=== PATIENT | female | born 1990 | race Caucasian/White ===

== ENCOUNTER 2021-01-29 09:45 | Outpatient (RCR) | payer OTHER, SELFPAY ==
--- NOTE | 2020-11-07 16:06 | PT.OIE ---
Current Diagnoses Unspecified temporomandibular joint disorder, unspecified side (11/07/20) Past Medical History (Last Reviewed 10/12/20 @ 05:49 by DYLAN Quiroga) Anxiety PTSD (post-traumatic stress disorder) Temporomandibular dysfunction syndrome Visit Care Team Role Provider Type DYLAN Quiroga Attending Provider Advanced Government Operations Consultant Primary Care Provider Referring Provider Specialty: Medical Address: [address] [place] [address], [facility] Email: [email or web address] Physical Therapy Initial Evaluation PT-OP-A Visit Information Start: 11/07/20 07:26 Freq: Status: Active Protocol: Document 11/07/20 09:47 MB (Rec: 11/07/20 10:16 MB [id number]) Out-Patient Physical Therapy Visit Information Visit Information Visit Type Initial Evaluation Visit Note Visit Start Time 09:47 Visit Stop Time 10:30 Total Visit Minutes 43 Visit Number 1 Evaluation Information Evaluation Date 11/07/20 Precautions Precautions PTSD, pt states that she is trying to get PT-OP-B Current Condition Start: 11/07/20 07:26 Freq: Status: Active Protocol: Document 11/07/20 09:47 MB (Rec: 11/07/20 10:16 MB [id number]) Current Condition History of Current Condition Onset Date 2011 after work on top left molar and bite was off Current Complaints Left TMJ ache, weakness and sharp pain biting down on hard food History of Current Condition 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 Pt's spouse is active and has had long deployment. Pt has a history of PTSD with sleep paralysis occ at night, bruxism, pancreatic issues and pt saw green hide inspector to assist with her with diet. Pt reports ringing in both ears 1-2x/every two weeks. She denies headache, dizziness and neck pain. She does report a history of low BP that made her feel off. She is concerned about flattening of the left TMJ per previous x- ray. She reports she had tubes in her ears when she was little d /t drainage. She is trying to get . She has seasonal allergies. Pt had wisdom teeth out in October 2019. She was given a bite guard and then she got a crown and then she did not use it anymore. Pt reports that it is easy and comfortable to close with her back teeth together, pt feels her back teeth touching when clicking them together. It feels like pressure is on the middle teeth and not on the back molars when she taps her teeth together. In the morning , she feels feels stiff and arthritic type pain in her left TMJ area. If she bites in an apple or nut, she feels sharp pain in the left TMJ area. She cannot bite down hard with her teeth. It feels like her jaw might break and she has the sharp pain and so she avoids it. Pt feels her body tightening up at night, including her arms. She liked craniosacral therapy in the past. She felt relief with it. She also felt relief with massage therapy. It is like a valve opening up and more mobility in her left TMJ. Pt sleeps on her back with one pillow under her head. She occ wakes up on her stomach with her head turned to the left. She has a memory foam mattress. She likes it. She gets cold at night. She got a weighted blanket. She gets up 1-2x/night to urinate. She denies apnea and walking in her sleep. She has 2 dogs and a cat in the room. The cat occ gets on the bed. The cat occ inhibits movement. Treatment Goals Patient/Caregiver Goals To bite down hard without pain , waking up with less jaw pain and tension, learning techniques that will help her in the future. PT-OP-C Subjective Start: 11/07/20 07:26 Freq: Status: Active Protocol: Document 11/07/20 09:47 MB (Rec: 11/07/20 15:42 MB [id number]) OP-PT Subjective Patient Comments Patient Comments See history of current condition PT-OP-J Posture/Palpation/Skin Start: 11/07/20 07:26 Freq: Status: Active Protocol: Document 11/07/20 09:47 MB (Rec: 11/07/20 16:05 MB [id number]) Posture Evaluation Comments Posture Comments Standing posture: Pt states with head in mild SB posture that she corrects and it changes. She states this is a long-standing posture of hers. She presents with forward head, rounded shoulders, decreased cervical lordosis, Dowager's hump, decreased thoracic kyphosis, anterior tilt pelvis, mid clavicular protrusion B, right scapula lower than the left, right iliac crest higher than the left. Skin Assessment Other Assessments Skin Assessment Comments Increased tension right greater than left SCM, left temporalis PT-OP-K Range of Motion Start: 11/07/20 07:26 Freq: Status: Active Protocol: Document 11/07/20 09:47 MB (Rec: 11/07/20 16:05 MB [id number]) Cervical Spine Range of Motion Cervical Spine Active Testing Position Standing Flexion 35 Extension 40 Rotation Left 50 Rotation Right 50 Lateral Flexion Left 35 Lateral Flexion Right 25 TMJ Range of Motion Comments Comments Mild deviation to the left with mandiublar depression. 32 mm depression today PT-OP-Q Treatments Start: 11/07/20 07:26 Freq: Status: Active Protocol: Document 11/07/20 09:47 MB (Rec: 11/07/20 15:46 MB [id number]) Self-Care/Home Management Treatment Education Other Education Benefits of Counterstrain, relaxation exercises such as progressive muscle relaxation exercises, breathing exercises and reading, The Body Keeps the Score for education about PTSD, the limbic system, parasympathetic and sympathetic nervous systems, good sleep hygiene PT-OP-T Assessment and Plan Start: 11/07/20 07:26 Freq: Status: Active Protocol: Document 11/07/20 09:47 MB (Rec: 11/07/20 15:56 MB [id number]) Physical Therapy Assessment Rehab Potential Rehabilitation Potential Good Evaluation Complexity Number of Personal Factors/Comorbidities 1-2 Number of Body Systems Impaired 1-2 Clinical Presentation at Evaluation Evolving Impairments Impairments Pain,Posture,ROM,Soft Tissue Mobility Goals 3 Business Process Engineer Goal (LTG) Pt will perform progressive HEP with I including postural, relaxation, flexibility, and self-myofascial exercises to improve pain, posture and function by 01/07/21. LTG Duration 8 weeks 2 Snf Goal (LTG) Pt will report an overall 75% improvement in left TMJ symptoms with sleeping and waking to improve quality of sleep and life by 01/07/21. LTG Duration 8 weeks 1 Business Process Engineer Goal (LTG) Pt will report a 75% improvement in pain and strength ability of biting into a hard food such as an apple by 01/07/21. LTG Duration 8 weeks Assessment Summary Assessment Pt is a pleasant 29 y/o female presenting with a long history of L TMJ pain after dental procedure in 2011 and feeling like her bite was misaligned since that time. Her manibular depression deviates to the left and she presents with some myofascial and postural changes including decreased active cervical ROM . She reports a history of PTSD and states that she does tense at night in her UEs and in her jaw at times. She has had pain sleeping and upon waking up. She will beneift from PT to address underlying contributions to jaw and upper body tension including sleeping strategies, progressive muscle relaxation and breathing techniques, postural training and education and progressive flexibility and strengthening. Physical Therapy Plan Frequency and Duration Frequency of Treatment 2x/Week Duration of Treatment 8 weeks Plan of Care Start Date 11/07/20 Plan of Care End Date 01/07/21 Therapeutic Interventions Therapeutic Interventions Balance Training,Canalithic Repositioning,Home Exercise Program,Joint Mobilizations, Manual Therapy,Neuromuscular Re-education,Patient/Caregiver Education,Self-Care/Home Management,Soft Tissue Mobilization,Taping, Therapeutic Activities, Therapeutic Exercises Modalities Cold Pack/Ice Massage,Hot Packs Next Visit Focus/Plan Next Note Type Treatment Note Next Visit Plan Initiate progressive muscle relaxation and Buteyko breathing soon, Counterstrain, racquet ball massage and self -SCM MWM, temporalis and masseter MWM
--- NOTE | 2020-11-07 16:06 | PT.OPPOC ---
Physical, Occupational & Speech Therapy At [facility] Current Diagnoses Unspecified temporomandibular joint disorder, unspecified side (11/07/20) Visit Care Team Role Provider Type DYLAN Quiroga Attending Provider Advanced Clinical Team Manager Primary Care Provider Referring Provider Specialty: Medical Address: [address] [place] [address], [facility] Email: [email or web address] Plan Of Care PT-OP-T Assessment and Plan Start: 11/07/20 07:26 Freq: Status: Active Protocol: Document 11/07/20 09:47 MB (Rec: 11/07/20 15:56 MB [id number]) Physical Therapy Assessment Rehab Potential Rehabilitation Potential Good Evaluation Complexity Number of Personal Factors/Comorbidities 1-2 Number of Body Systems Impaired 1-2 Clinical Presentation at Evaluation Evolving Impairments Impairments Pain,Posture,ROM,Soft Tissue Mobility Goals 3 Yard Loader Operator Goal (LTG) Pt will perform progressive HEP with I including postural, relaxation, flexibility, and self-myofascial exercises to improve pain, posture and function by 01/07/21. LTG Duration 8 weeks 2 Senior Care Goal (LTG) Pt will report an overall 75% improvement in left TMJ symptoms with sleeping and waking to improve quality of sleep and life by 01/07/21. LTG Duration 8 weeks 1 Yard Loader Operator Goal (LTG) Pt will report a 75% improvement in pain and strength ability of biting into a hard food such as an apple by 01/07/21. LTG Duration 8 weeks Assessment Summary Assessment Pt is a pleasant 29 y/o female presenting with a long history of L TMJ pain after dental procedure in 2011 and feeling like her bite was misaligned since that time. Her manibular depression deviates to the left and she presents with some myofascial and postural changes including decreased active cervical ROM . She reports a history of PTSD and states that she does tense at night in her UEs and in her jaw at times. She has had pain sleeping and upon waking up. She will beneift from PT to address underlying contributions to jaw and upper body tension including sleeping strategies, progressive muscle relaxation and breathing techniques, postural training and education and progressive flexibility and strengthening. Physical Therapy Plan Frequency and Duration Frequency of Treatment 2x/Week Duration of Treatment 8 weeks Plan of Care Start Date 11/07/20 Plan of Care End Date 01/07/21 Therapeutic Interventions Therapeutic Interventions Balance Training,Canalithic Repositioning,Home Exercise Program,Joint Mobilizations, Manual Therapy,Neuromuscular Re-education,Patient/Caregiver Education,Self-Care/Home Management,Soft Tissue Mobilization,Taping, Therapeutic Activities, Therapeutic Exercises Modalities Cold Pack/Ice Massage,Hot Packs Next Visit Focus/Plan Next Note Type Treatment Note Next Visit Plan Initiate progressive muscle relaxation and Buteyko breathing soon, Counterstrain, racquet ball massage and self -SCM MWM, temporalis and masseter MWM Plan of Care Dates Plan of Care Start Date 11/07/20 Plan of Care End Date 01/07/21 Electronically Signed by: Misti Pacheco, PT 11/07/20 [id number] Please Sign and Return: I have reviewed this Plan of Care and certify that the skilled therapy services above are required to meet the patient?s needs. Physician Signature Date Printed Name and Credentials Clinical Instructor Signature Printed Name and Credentials
--- NOTE | 2020-11-09 14:35 | PT.OTN ---
Current Diagnoses Unspecified temporomandibular joint disorder, unspecified side (11/09/20) Physical Therapy Treatment Note PT-OP-A Visit Information Start: 11/07/20 07:26 Freq: Status: Active Protocol: Document 11/09/20 13:50 MB (Rec: 11/09/20 14:35 MB [id number]) Out-Patient Physical Therapy Visit Information Visit Information Visit Type Treatment Note Visit Note Visit Start Time 13:50 Visit Stop Time 14:30 Total Visit Minutes 40 Visit Number 2 Precautions Precautions PTSD, pt states that she is trying to get PT-OP-B Current Condition Start: 11/07/20 07:26 Freq: Status: Active Protocol: Document 11/07/20 09:47 MB (Rec: 11/07/20 10:16 MB [id number]) Current Condition History of Current Condition Onset Date 2011 after work on top left molar and bite was off Current Complaints Left TMJ ache, weakness and sharp pain biting down on hard food History of Current Condition 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 Pt's spouse is active and has had long deployment. Pt has a history of PTSD with sleep paralysis occ at night, bruxism, pancreatic issues and pt saw retail general manager to assist with her with diet. Pt reports ringing in both ears 1-2x/every two weeks. She denies headache, dizziness and neck pain. She does report a history of low BP that made her feel off. She is concerned about flattening of the left TMJ per previous x- ray. She reports she had tubes in her ears when she was little d /t drainage. She is trying to get . She has seasonal allergies. Pt had wisdom teeth out in October 2019. She was given a bite guard and then she got a crown and then she did not use it anymore. Pt reports that it is easy and comfortable to close with her back teeth together, pt feels her back teeth touching when clicking them together. It feels like pressure is on the middle teeth and not on the back molars when she taps her teeth together. In the morning , she feels feels stiff and arthritic type pain in her left TMJ area. If she bites in an apple or nut, she feels sharp pain in the left TMJ area. She cannot bite down hard with her teeth. It feels like her jaw might break and she has the sharp pain and so she avoids it. Pt feels her body tightening up at night, including her arms. She liked craniosacral therapy in the past. She felt relief with it. She also felt relief with massage therapy. It is like a valve opening up and more mobility in her left TMJ. Pt sleeps on her back with one pillow under her head. She occ wakes up on her stomach with her head turned to the left. She has a memory foam mattress. She likes it. She gets cold at night. She got a weighted blanket. She gets up 1-2x/night to urinate. She denies apnea and walking in her sleep. She has 2 dogs and a cat in the room. The cat occ gets on the bed. The cat occ inhibits movement. Treatment Goals Patient/Caregiver Goals To bite down hard without pain , waking up with less jaw pain and tension, learning techniques that will help her in the future. PT-OP-C Subjective Start: 11/07/20 07:26 Freq: Status: Active Protocol: Document 11/09/20 13:50 MB (Rec: 11/09/20 14:35 MB [id number]) OP-PT Subjective Patient Comments Patient Comments Pt states that she is interested in the author of The Body Keeps the Score. PT-OP-J Posture/Palpation/Skin Start: 11/07/20 07:26 Freq: Status: Active Protocol: Document 11/07/20 09:47 MB (Rec: 11/07/20 16:05 MB [id number]) Posture Evaluation Comments Posture Comments Standing posture: Pt states with head in mild SB posture that she corrects and it changes. She states this is a long-standing posture of hers. She presents with forward head, rounded shoulders, decreased cervical lordosis, Dowager's hump, decreased thoracic kyphosis, anterior tilt pelvis, mid clavicular protrusion B, right scapula lower than the left, right iliac crest higher than the left. Skin Assessment Other Assessments Skin Assessment Comments Increased tension right greater than left SCM, left temporalis PT-OP-K Range of Motion Start: 11/07/20 07:26 Freq: Status: Active Protocol: Document 11/07/20 09:47 MB (Rec: 11/07/20 16:05 MB [id number]) Cervical Spine Range of Motion Cervical Spine Active Testing Position Standing Flexion 35 Extension 40 Rotation Left 50 Rotation Right 50 Lateral Flexion Left 35 Lateral Flexion Right 25 TMJ Range of Motion Comments Comments Mild deviation to the left with mandiublar depression. 32 mm depression today PT-OP-Q Treatments Start: 11/07/20 07:26 Freq: Status: Active Protocol: Document 11/09/20 13:50 MB (Rec: 11/09/20 14:35 MB [id number]) Therapeutic Exercises Supine Exercises Tongue to roof of mouth Comments Cued to perform in hook lying and relax and nasal breathe Buteyko breathing Supine Exercise Name Ed pt in theory behind breathing, exercise 1 and 2 Comments See assessment for comments today Self-Care/Home Management Treatment Education Other Education Proper sleeping position with towel roll support at neck and pillow support under head, white noise to help with sound leveling and trying to keep cat off the bed to decrease startle, benefits of breathing , progressive relaxation exercises, good positioning for exercises, breathing, autonomic nervous system, sympathetic and parasympathetic nervous. PT-OP-T Assessment and Plan Start: 11/07/20 07:26 Freq: Status: Active Protocol: Document 11/09/20 13:50 MB (Rec: 11/09/20 14:35 MB [id number]) Physical Therapy Assessment Rehab Potential Rehabilitation Potential Good Evaluation Complexity Number of Personal Factors/Comorbidities 1-2 Number of Body Systems Impaired 1-2 Clinical Presentation at Evaluation Evolving Impairments Impairments Pain,Posture,ROM,Soft Tissue Mobility Goals 3 Fpc Goal (LTG) Pt will perform progressive HEP with I including postural, relaxation, flexibility, and self-myofascial exercises to improve pain, posture and function by 01/07/21. LTG Duration 8 weeks 2 Fpc Goal (LTG) Pt will report an overall 75% improvement in left TMJ symptoms with sleeping and waking to improve quality of sleep and life by 01/07/21. LTG Duration 8 weeks 1 Personalized Living Manager Nurse Goal (LTG) Pt will report a 75% improvement in pain and strength ability of biting into a hard food such as an apple by 01/07/21. LTG Duration 8 weeks Assessment Summary Assessment Initiated Buteyko technique today and HR and O2 sats in left index finger: at rest: 61 BPM and O2 sats 98%. After 1st rep: 26 sec, 48 BPM, 99%; 2nd rep: 28 sec. Education con 't and so more practice and add diaphragm breathing in future treatment dates. Physical Therapy Plan Frequency and Duration Frequency of Treatment 2x/Week Duration of Treatment 8 weeks Plan of Care Start Date 11/07/20 Plan of Care End Date 01/07/21 Therapeutic Interventions Therapeutic Interventions Balance Training,Canalithic Repositioning,Home Exercise Program,Joint Mobilizations, Manual Therapy,Neuromuscular Re-education,Patient/Caregiver Education,Self-Care/Home Management,Soft Tissue Mobilization,Taping, Therapeutic Activities, Therapeutic Exercises Modalities Cold Pack/Ice Massage,Hot Packs Next Visit Focus/Plan Next Note Type Treatment Note Next Visit Plan Progress diaphragm breathing with [place]. Initiate progressive muscle relaxation soon, Counterstrain, racquet ball massage and self-SCM MWM, temporalis and masseter MWM
--- NOTE | 2020-11-12 11:12 | PT.OTN ---
Current Diagnoses Unspecified temporomandibular joint disorder, unspecified side (11/12/20) Physical Therapy Treatment Note PT-OP-A Visit Information Start: 11/07/20 07:26 Freq: Status: Active Protocol: Document 11/12/20 10:30 MB (Rec: 11/12/20 11:12 MB [id number]) Out-Patient Physical Therapy Visit Information Visit Information Visit Type Treatment Note Visit Note Visit Start Time 10:30 Visit Stop Time 11:12 Total Visit Minutes 42 Visit Number 3 Precautions Precautions PTSD, pt states that she is trying to get PT-OP-B Current Condition Start: 11/07/20 07:26 Freq: Status: Active Protocol: Document 11/07/20 09:47 MB (Rec: 11/07/20 10:16 MB [id number]) Current Condition History of Current Condition Onset Date 2011 after work on top left molar and bite was off Current Complaints Left TMJ ache, weakness and sharp pain biting down on hard food History of Current Condition 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 Pt's spouse is active and has had long deployment. Pt has a history of PTSD with sleep paralysis occ at night, bruxism, pancreatic issues and pt saw appraiser boats and marine to assist with her with diet. Pt reports ringing in both ears 1-2x/every two weeks. She denies headache, dizziness and neck pain. She does report a history of low BP that made her feel off. She is concerned about flattening of the left TMJ per previous x- ray. She reports she had tubes in her ears when she was little d /t drainage. She is trying to get . She has seasonal allergies. Pt had wisdom teeth out in October 2019. She was given a bite guard and then she got a crown and then she did not use it anymore. Pt reports that it is easy and comfortable to close with her back teeth together, pt feels her back teeth touching when clicking them together. It feels like pressure is on the middle teeth and not on the back molars when she taps her teeth together. In the morning , she feels feels stiff and arthritic type pain in her left TMJ area. If she bites in an apple or nut, she feels sharp pain in the left TMJ area. She cannot bite down hard with her teeth. It feels like her jaw might break and she has the sharp pain and so she avoids it. Pt feels her body tightening up at night, including her arms. She liked craniosacral therapy in the past. She felt relief with it. She also felt relief with massage therapy. It is like a valve opening up and more mobility in her left TMJ. Pt sleeps on her back with one pillow under her head. She occ wakes up on her stomach with her head turned to the left. She has a memory foam mattress. She likes it. She gets cold at night. She got a weighted blanket. She gets up 1-2x/night to urinate. She denies apnea and walking in her sleep. She has 2 dogs and a cat in the room. The cat occ gets on the bed. The cat occ inhibits movement. Treatment Goals Patient/Caregiver Goals To bite down hard without pain , waking up with less jaw pain and tension, learning techniques that will help her in the future. PT-OP-C Subjective Start: 11/07/20 07:26 Freq: Status: Active Protocol: Document 11/12/20 10:30 MB (Rec: 11/12/20 11:12 MB [id number]) OP-PT Subjective Patient Comments Patient Comments I had a breakthrough. Pt states that she was doing th exercise in her chair and fell asleep and when her 's friend came into the house in the evening, she did not wake up or have a hypervigilant response. Her TMJ pain this morning was 3-4/10 rather than 6-7/10. PT-OP-J Posture/Palpation/Skin Start: 11/07/20 07:26 Freq: Status: Active Protocol: Document 11/07/20 09:47 MB (Rec: 11/07/20 16:05 MB [id number]) Posture Evaluation Comments Posture Comments Standing posture: Pt states with head in mild SB posture that she corrects and it changes. She states this is a long-standing posture of hers. She presents with forward head, rounded shoulders, decreased cervical lordosis, Dowager's hump, decreased thoracic kyphosis, anterior tilt pelvis, mid clavicular protrusion B, right scapula lower than the left, right iliac crest higher than the left. Skin Assessment Other Assessments Skin Assessment Comments Increased tension right greater than left SCM, left temporalis PT-OP-K Range of Motion Start: 11/07/20 07:26 Freq: Status: Active Protocol: Document 11/07/20 09:47 MB (Rec: 11/07/20 16:05 MB [id number]) Cervical Spine Range of Motion Cervical Spine Active Testing Position Standing Flexion 35 Extension 40 Rotation Left 50 Rotation Right 50 Lateral Flexion Left 35 Lateral Flexion Right 25 TMJ Range of Motion Comments Comments Mild deviation to the left with mandiublar depression. 32 mm depression today PT-OP-Q Treatments Start: 11/07/20 07:26 Freq: Status: Active Protocol: Document 11/12/20 10:30 MB (Rec: 11/12/20 11:12 MB [id number]) Therapeutic Exercises Supine Exercises Progressive Muscle Relaxation Exercises Side bilateral Reps/Minutes 1 rep, 10 sec hold Comments Pt performs all exercises except except press teeth/open mouth/eye squeeze Buteyko breathing Supine Exercise Name Diaphragm breathing with Buteyko breathing Comments 3 reps with cues: 1st rep: 12 sec; 2nd rep: 14 sec; 3rd rep: 17 sec Manual Therapy Treatment Other Other Manual Treatments MWM left rectus abdominus with coordinated diaphragm breathing; MWM B upper traps with PT providing TrP pressure and pt performing active cervical rotation, also worked on middle scalene in similar position PT-OP-T Assessment and Plan Start: 11/07/20 07:26 Freq: Status: Active Protocol: Document 11/12/20 10:30 MB (Rec: 11/12/20 11:12 MB [id number]) Physical Therapy Assessment Rehab Potential Rehabilitation Potential Good Evaluation Complexity Number of Personal Factors/Comorbidities 1-2 Number of Body Systems Impaired 1-2 Clinical Presentation at Evaluation Evolving Impairments Impairments Pain,Posture,ROM,Soft Tissue Mobility Goals 3 Detention Goal (LTG) Pt will perform progressive HEP with I including postural, relaxation, flexibility, and self-myofascial exercises to improve pain, posture and function by 01/07/21. LTG Duration 8 weeks 2 Prop And Effects Designer Goal (LTG) Pt will report an overall 75% improvement in left TMJ symptoms with sleeping and waking to improve quality of sleep and life by 01/07/21. LTG Duration 8 weeks 1 Prop And Effects Designer Goal (LTG) Pt will report a 75% improvement in pain and strength ability of biting into a hard food such as an apple by 01/07/21. LTG Duration 8 weeks Assessment Summary Assessment Progressed PMRE today and diaphragm breathing with [place]. Pt states that she often notices she has tension in her neck and upper shoulders and will con't to work on this with PT course of manual work and self-care and exercises. Physical Therapy Plan Frequency and Duration Frequency of Treatment 2x/Week Duration of Treatment 8 weeks Plan of Care Start Date 11/07/20 Plan of Care End Date 01/07/21 Therapeutic Interventions Therapeutic Interventions Balance Training,Canalithic Repositioning,Home Exercise Program,Joint Mobilizations, Manual Therapy,Neuromuscular Re-education,Patient/Caregiver Education,Self-Care/Home Management,Soft Tissue Mobilization,Taping, Therapeutic Activities, Therapeutic Exercises Modalities Cold Pack/Ice Massage,Hot Packs Next Visit Focus/Plan Next Note Type Treatment Note Next Visit Plan Counterstrain, racquet ball massage and self-SCM MWM, temporalis and masseter MWM
--- NOTE | 2020-11-14 13:01 | PT.OTN ---
Current Diagnoses Unspecified temporomandibular joint disorder, unspecified side (11/14/20) Physical Therapy Treatment Note PT-OP-A Visit Information Start: 11/07/20 07:26 Freq: Status: Active Protocol: Document 11/14/20 12:15 MB (Rec: 11/14/20 12:57 MB [id number]) Out-Patient Physical Therapy Visit Information Visit Information Visit Type Treatment Note Visit Note Visit Start Time 12:15 Visit Stop Time 12:47 Total Visit Minutes 42 Visit Number 4 Precautions Precautions PTSD, pt states that she is trying to get PT-OP-B Current Condition Start: 11/07/20 07:26 Freq: Status: Active Protocol: Document 11/07/20 09:47 MB (Rec: 11/07/20 10:16 MB [id number]) Current Condition History of Current Condition Onset Date 2011 after work on top left molar and bite was off Current Complaints Left TMJ ache, weakness and sharp pain biting down on hard food History of Current Condition 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 Pt's spouse is active and has had long deployment. Pt has a history of PTSD with sleep paralysis occ at night, bruxism, pancreatic issues and pt saw technical sales representatives to assist with her with diet. Pt reports ringing in both ears 1-2x/every two weeks. She denies headache, dizziness and neck pain. She does report a history of low BP that made her feel off. She is concerned about flattening of the left TMJ per previous x- ray. She reports she had tubes in her ears when she was little d /t drainage. She is trying to get . She has seasonal allergies. Pt had wisdom teeth out in October 2019. She was given a bite guard and then she got a crown and then she did not use it anymore. Pt reports that it is easy and comfortable to close with her back teeth together, pt feels her back teeth touching when clicking them together. It feels like pressure is on the middle teeth and not on the back molars when she taps her teeth together. In the morning , she feels feels stiff and arthritic type pain in her left TMJ area. If she bites in an apple or nut, she feels sharp pain in the left TMJ area. She cannot bite down hard with her teeth. It feels like her jaw might break and she has the sharp pain and so she avoids it. Pt feels her body tightening up at night, including her arms. She liked craniosacral therapy in the past. She felt relief with it. She also felt relief with massage therapy. It is like a valve opening up and more mobility in her left TMJ. Pt sleeps on her back with one pillow under her head. She occ wakes up on her stomach with her head turned to the left. She has a memory foam mattress. She likes it. She gets cold at night. She got a weighted blanket. She gets up 1-2x/night to urinate. She denies apnea and walking in her sleep. She has 2 dogs and a cat in the room. The cat occ gets on the bed. The cat occ inhibits movement. Treatment Goals Patient/Caregiver Goals To bite down hard without pain , waking up with less jaw pain and tension, learning techniques that will help her in the future. PT-OP-C Subjective Start: 11/07/20 07:26 Freq: Status: Active Protocol: Document 11/14/20 12:15 MB (Rec: 11/14/20 12:57 MB [id number]) OP-PT Subjective Patient Comments Patient Comments I don't feel comfortable doing doing the muscle contraction exercises in my upper body. I liked the muscle work on my neck. It relieved discomfort. Ed pt to only perform PMRE if helpful and only LEs. PT-OP-J Posture/Palpation/Skin Start: 11/07/20 07:26 Freq: Status: Active Protocol: Document 11/07/20 09:47 MB (Rec: 11/07/20 16:05 MB [id number]) Posture Evaluation Comments Posture Comments Standing posture: Pt states with head in mild SB posture that she corrects and it changes. She states this is a long-standing posture of hers. She presents with forward head, rounded shoulders, decreased cervical lordosis, Dowager's hump, decreased thoracic kyphosis, anterior tilt pelvis, mid clavicular protrusion B, right scapula lower than the left, right iliac crest higher than the left. Skin Assessment Other Assessments Skin Assessment Comments Increased tension right greater than left SCM, left temporalis PT-OP-K Range of Motion Start: 11/07/20 07:26 Freq: Status: Active Protocol: Document 11/07/20 09:47 MB (Rec: 11/07/20 16:05 MB [id number]) Cervical Spine Range of Motion Cervical Spine Active Testing Position Standing Flexion 35 Extension 40 Rotation Left 50 Rotation Right 50 Lateral Flexion Left 35 Lateral Flexion Right 25 TMJ Range of Motion Comments Comments Mild deviation to the left with mandiublar depression. 32 mm depression today PT-OP-Q Treatments Start: 11/07/20 07:26 Freq: Status: Active Protocol: Document 11/14/20 12:15 MB (Rec: 11/14/20 12:57 MB [id number]) Therapeutic Exercises Supine Exercises Buteyko breathing Supine Exercise Name Blocked nostril and sinus decongestion exercises Equipment Used Chair with pillow behind back, sitting today Comments Left blocked nostril and then B for sinus decongestion, several reps Sitting Exercises MWM upper traps with raquet ball Side bilateral Comments TrP pressure on upper traps leaning into racquet ball at corner, rotate Back farm truck driver MWM upper traps Side bilateral Comments TrP pressure and pt performing active cervical rotation opposite direction Standing Exercises MWM infraspinatus Side bilateral Comments TrP pressure with racquet ball and pt performing active ER/ IR PT-OP-T Assessment and Plan Start: 11/07/20 07:26 Freq: Status: Active Protocol: Document 11/14/20 12:15 MB (Rec: 11/14/20 12:57 MB [id number]) Physical Therapy Assessment Rehab Potential Rehabilitation Potential Good Evaluation Complexity Number of Personal Factors/Comorbidities 1-2 Number of Body Systems Impaired 1-2 Clinical Presentation at Evaluation Evolving Impairments Impairments Pain,Posture,ROM,Soft Tissue Mobility Goals 3 Detention Goal (LTG) Pt will perform progressive HEP with I including postural, relaxation, flexibility, and self-myofascial exercises to improve pain, posture and function by 01/07/21. LTG Duration 8 weeks 2 Detention Goal (LTG) Pt will report an overall 75% improvement in left TMJ symptoms with sleeping and waking to improve quality of sleep and life by 01/07/21. LTG Duration 8 weeks 1 Needle Punch Machine Operator Helper Goal (LTG) Pt will report a 75% improvement in pain and strength ability of biting into a hard food such as an apple by 01/07/21. LTG Duration 8 weeks Assessment Summary Assessment Progressed Buteyko breathing today and self-massage and pt tolerates well. Extensive time reviewing muscle trigger point referral and massage today. Con't manual, postural and flexibility work. Physical Therapy Plan Frequency and Duration Frequency of Treatment 2x/Week Duration of Treatment 8 weeks Plan of Care Start Date 11/07/20 Plan of Care End Date 01/07/21 Therapeutic Interventions Therapeutic Interventions Balance Training,Canalithic Repositioning,Home Exercise Program,Joint Mobilizations, Manual Therapy,Neuromuscular Re-education,Patient/Caregiver Education,Self-Care/Home Management,Soft Tissue Mobilization,Taping, Therapeutic Activities, Therapeutic Exercises Modalities Cold Pack/Ice Massage,Hot Packs Next Visit Focus/Plan Next Note Type Treatment Note Next Visit Plan Counterstrain and other manual work including masseter manual PT, pect stretch over pool noodle
--- NOTE | 2020-11-20 09:43 | PT.OTN ---
Current Diagnoses Unspecified temporomandibular joint disorder, unspecified side (11/20/20) Physical Therapy Treatment Note PT-OP-A Visit Information Start: 11/07/20 07:26 Freq: Status: Active Protocol: Document 11/20/20 09:01 MB (Rec: 11/20/20 09:32 MB [id number]) Out-Patient Physical Therapy Visit Information Visit Information Visit Type Treatment Note Visit Note Visit Start Time 09:01 Visit Stop Time 09:42 Total Visit Minutes 41 Visit Number 5 Precautions Precautions PTSD, pt states that she is trying to get PT-OP-B Current Condition Start: 11/07/20 07:26 Freq: Status: Active Protocol: Document 11/07/20 09:47 MB (Rec: 11/07/20 10:16 MB [id number]) Current Condition History of Current Condition Onset Date 2011 after work on top left molar and bite was off Current Complaints Left TMJ ache, weakness and sharp pain biting down on hard food History of Current Condition 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 Pt's spouse is active and has had long deployment. Pt has a history of PTSD with sleep paralysis occ at night, bruxism, pancreatic issues and pt saw concession attendant to assist with her with diet. Pt reports ringing in both ears 1-2x/every two weeks. She denies headache, dizziness and neck pain. She does report a history of low BP that made her feel off. She is concerned about flattening of the left TMJ per previous x- ray. She reports she had tubes in her ears when she was little d /t drainage. She is trying to get . She has seasonal allergies. Pt had wisdom teeth out in October 2019. She was given a bite guard and then she got a crown and then she did not use it anymore. Pt reports that it is easy and comfortable to close with her back teeth together, pt feels her back teeth touching when clicking them together. It feels like pressure is on the middle teeth and not on the back molars when she taps her teeth together. In the morning , she feels feels stiff and arthritic type pain in her left TMJ area. If she bites in an apple or nut, she feels sharp pain in the left TMJ area. She cannot bite down hard with her teeth. It feels like her jaw might break and she has the sharp pain and so she avoids it. Pt feels her body tightening up at night, including her arms. She liked craniosacral therapy in the past. She felt relief with it. She also felt relief with massage therapy. It is like a valve opening up and more mobility in her left TMJ. Pt sleeps on her back with one pillow under her head. She occ wakes up on her stomach with her head turned to the left. She has a memory foam mattress. She likes it. She gets cold at night. She got a weighted blanket. She gets up 1-2x/night to urinate. She denies apnea and walking in her sleep. She has 2 dogs and a cat in the room. The cat occ gets on the bed. The cat occ inhibits movement. Treatment Goals Patient/Caregiver Goals To bite down hard without pain , waking up with less jaw pain and tension, learning techniques that will help her in the future. PT-OP-C Subjective Start: 11/07/20 07:26 Freq: Status: Active Protocol: Document 11/20/20 09:01 MB (Rec: 11/20/20 09:32 MB [id number]) OP-PT Subjective Patient Comments Patient Comments Pt states that she is a little sore from the weekend. She worked hard in the garden and is tighter all over. She did the breathing. She didn't sleep well the night before last. PT-OP-J Posture/Palpation/Skin Start: 11/07/20 07:26 Freq: Status: Active Protocol: Document 11/07/20 09:47 MB (Rec: 11/07/20 16:05 MB [id number]) Posture Evaluation Comments Posture Comments Standing posture: Pt states with head in mild SB posture that she corrects and it changes. She states this is a long-standing posture of hers. She presents with forward head, rounded shoulders, decreased cervical lordosis, Dowager's hump, decreased thoracic kyphosis, anterior tilt pelvis, mid clavicular protrusion B, right scapula lower than the left, right iliac crest higher than the left. Skin Assessment Other Assessments Skin Assessment Comments Increased tension right greater than left SCM, left temporalis PT-OP-K Range of Motion Start: 11/07/20 07:26 Freq: Status: Active Protocol: Document 11/07/20 09:47 MB (Rec: 11/07/20 16:05 MB [id number]) Cervical Spine Range of Motion Cervical Spine Active Testing Position Standing Flexion 35 Extension 40 Rotation Left 50 Rotation Right 50 Lateral Flexion Left 35 Lateral Flexion Right 25 TMJ Range of Motion Comments Comments Mild deviation to the left with mandiublar depression. 32 mm depression today PT-OP-Q Treatments Start: 11/07/20 07:26 Freq: Status: Active Protocol: Document 11/20/20 09:01 MB (Rec: 11/20/20 09:32 MB [id number]) Manual Therapy Treatment Other Other Manual Treatments MWM B SCM and STM and positional release B masseter. Pt agrees to Counterstrain to assess and treat fascial tension and she presents with tension in spinal vein extension and cranial periosteal fascial systems and PT treats spinal vein extension today and pt responds well initially PT-OP-T Assessment and Plan Start: 11/07/20 07:26 Freq: Status: Active Protocol: Document 11/20/20 09:01 MB (Rec: 11/20/20 09:32 MB [id number]) Physical Therapy Assessment Rehab Potential Rehabilitation Potential Good Evaluation Complexity Number of Personal Factors/Comorbidities 1-2 Number of Body Systems Impaired 1-2 Clinical Presentation at Evaluation Evolving Impairments Impairments Pain,Posture,ROM,Soft Tissue Mobility Goals 3 Valve Seater Operator Goal (LTG) Pt will perform progressive HEP with I including postural, relaxation, flexibility, and self-myofascial exercises to improve pain, posture and function by 01/07/21. LTG Duration 8 weeks 2 Mcfp Goal (LTG) Pt will report an overall 75% improvement in left TMJ symptoms with sleeping and waking to improve quality of sleep and life by 01/07/21. LTG Duration 8 weeks 1 Mcfp Goal (LTG) Pt will report a 75% improvement in pain and strength ability of biting into a hard food such as an apple by 01/07/21. LTG Duration 8 weeks Assessment Summary Assessment Manual work for SCM and masseter today and Counterstrain. Discussed self- masseter release and PT does feel that it could possibly increase shoulder and cervical tension, will con't to assess . Pt feels much better and TMJ is looser B with depression after manual work today. Physical Therapy Plan Frequency and Duration Frequency of Treatment 2x/Week Duration of Treatment 8 weeks Plan of Care Start Date 11/07/20 Plan of Care End Date 01/07/21 Therapeutic Interventions Therapeutic Interventions Balance Training,Canalithic Repositioning,Home Exercise Program,Joint Mobilizations, Manual Therapy,Neuromuscular Re-education,Patient/Caregiver Education,Self-Care/Home Management,Soft Tissue Mobilization,Taping, Therapeutic Activities, Therapeutic Exercises Modalities Cold Pack/Ice Massage,Hot Packs Next Visit Focus/Plan Next Note Type Treatment Note Next Visit Plan Counterstrain and other manual work including masseter manual PT, pect stretch over pool noodle
--- NOTE | 2020-11-23 14:31 | PT.OTN ---
Current Diagnoses Unspecified temporomandibular joint disorder, unspecified side (11/23/20) Physical Therapy Treatment Note PT-OP-A Visit Information Start: 11/07/20 07:26 Freq: Status: Active Protocol: Document 11/23/20 13:48 MB (Rec: 11/23/20 14:00 MB [id number]) Out-Patient Physical Therapy Visit Information Visit Information Visit Type Treatment Note Visit Note Visit Start Time 13:48 Visit Stop Time 14:30 Total Visit Minutes 42 Visit Number 6 Precautions Precautions PTSD, pt states that she is trying to get and PT ed her to tell PT if she gets and she states that she will PT-OP-B Current Condition Start: 11/07/20 07:26 Freq: Status: Active Protocol: Document 11/07/20 09:47 MB (Rec: 11/07/20 10:16 MB [id number]) Current Condition History of Current Condition Onset Date 2011 after work on top left molar and bite was off Current Complaints Left TMJ ache, weakness and sharp pain biting down on hard food History of Current Condition 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 Pt's spouse is active and has had long deployment. Pt has a history of PTSD with sleep paralysis occ at night, bruxism, pancreatic issues and pt saw manager country to assist with her with diet. Pt reports ringing in both ears 1-2x/every two weeks. She denies headache, dizziness and neck pain. She does report a history of low BP that made her feel off. She is concerned about flattening of the left TMJ per previous x- ray. She reports she had tubes in her ears when she was little d /t drainage. She is trying to get . She has seasonal allergies. Pt had wisdom teeth out in October 2019. She was given a bite guard and then she got a crown and then she did not use it anymore. Pt reports that it is easy and comfortable to close with her back teeth together, pt feels her back teeth touching when clicking them together. It feels like pressure is on the middle teeth and not on the back molars when she taps her teeth together. In the morning , she feels feels stiff and arthritic type pain in her left TMJ area. If she bites in an apple or nut, she feels sharp pain in the left TMJ area. She cannot bite down hard with her teeth. It feels like her jaw might break and she has the sharp pain and so she avoids it. Pt feels her body tightening up at night, including her arms. She liked craniosacral therapy in the past. She felt relief with it. She also felt relief with massage therapy. It is like a valve opening up and more mobility in her left TMJ. Pt sleeps on her back with one pillow under her head. She occ wakes up on her stomach with her head turned to the left. She has a memory foam mattress. She likes it. She gets cold at night. She got a weighted blanket. She gets up 1-2x/night to urinate. She denies apnea and walking in her sleep. She has 2 dogs and a cat in the room. The cat occ gets on the bed. The cat occ inhibits movement. Treatment Goals Patient/Caregiver Goals To bite down hard without pain , waking up with less jaw pain and tension, learning techniques that will help her in the future. PT-OP-C Subjective Start: 11/07/20 07:26 Freq: Status: Active Protocol: Document 11/23/20 13:48 MB (Rec: 11/23/20 14:00 MB [id number]) OP-PT Subjective Patient Comments Patient Comments Pt states that she slept well last night. She tried working on her masseter and would like to review this. PT-OP-J Posture/Palpation/Skin Start: 11/07/20 07:26 Freq: Status: Active Protocol: Document 11/07/20 09:47 MB (Rec: 11/07/20 16:05 MB [id number]) Posture Evaluation Comments Posture Comments Standing posture: Pt states with head in mild SB posture that she corrects and it changes. She states this is a long-standing posture of hers. She presents with forward head, rounded shoulders, decreased cervical lordosis, Dowager's hump, decreased thoracic kyphosis, anterior tilt pelvis, mid clavicular protrusion B, right scapula lower than the left, right iliac crest higher than the left. Skin Assessment Other Assessments Skin Assessment Comments Increased tension right greater than left SCM, left temporalis PT-OP-K Range of Motion Start: 11/07/20 07:26 Freq: Status: Active Protocol: Document 11/07/20 09:47 MB (Rec: 11/07/20 16:05 MB [id number]) Cervical Spine Range of Motion Cervical Spine Active Testing Position Standing Flexion 35 Extension 40 Rotation Left 50 Rotation Right 50 Lateral Flexion Left 35 Lateral Flexion Right 25 TMJ Range of Motion Comments Comments Mild deviation to the left with mandiublar depression. 32 mm depression today PT-OP-Q Treatments Start: 11/07/20 07:26 Freq: Status: Active Protocol: Document 11/23/20 13:48 MB (Rec: 11/23/20 14:00 MB [id number]) Manual Therapy Treatment Other Other Manual Treatments B masseter STM and pt tolerates well, instruction breaks during treatment Self-Care/Home Management Treatment Education Other Education Hook lying position with head and neck support and upper extremity support for self- masseter STM (pt tried performing in sitting at home) . Ed to work on masseter with ipsilateral arm and arm supprt , tacticle and verbal ed in technique and pt responds well . PT-OP-T Assessment and Plan Start: 11/07/20 07:26 Freq: Status: Active Protocol: Document 11/23/20 13:48 MB (Rec: 11/23/20 14:00 MB [id number]) Physical Therapy Assessment Rehab Potential Rehabilitation Potential Good Evaluation Complexity Number of Personal Factors/Comorbidities 1-2 Number of Body Systems Impaired 1-2 Clinical Presentation at Evaluation Evolving Impairments Impairments Pain,Posture,ROM,Soft Tissue Mobility Goals 3 Asphalt Heater Operator Goal (LTG) Pt will perform progressive HEP with I including postural, relaxation, flexibility, and self-myofascial exercises to improve pain, posture and function by 01/07/21. LTG Duration 8 weeks 2 Usp Goal (LTG) Pt will report an overall 75% improvement in left TMJ symptoms with sleeping and waking to improve quality of sleep and life by 01/07/21. LTG Duration 8 weeks 1 Asphalt Heater Operator Goal (LTG) Pt will report a 75% improvement in pain and strength ability of biting into a hard food such as an apple by 01/07/21. LTG Duration 8 weeks Assessment Summary Assessment Pt con't to have some good night's of sleep, reports dreaming and asks about learning self-massage for masseter today and so this is taught and practiced. PT manual work on masseters today as well to improve myofascial tension and pt responds very well. Physical Therapy Plan Frequency and Duration Frequency of Treatment 2x/Week Duration of Treatment 8 weeks Plan of Care Start Date 11/07/20 Plan of Care End Date 01/07/21 Therapeutic Interventions Therapeutic Interventions Balance Training,Canalithic Repositioning,Home Exercise Program,Joint Mobilizations, Manual Therapy,Neuromuscular Re-education,Patient/Caregiver Education,Self-Care/Home Management,Soft Tissue Mobilization,Taping, Therapeutic Activities, Therapeutic Exercises Modalities Cold Pack/Ice Massage,Hot Packs Next Visit Focus/Plan Next Note Type Treatment Note Next Visit Plan Ongoing manual work, pect stretch and other exercises over pool noodle
--- NOTE | 2020-11-26 13:42 | PT.OTN ---
Current Diagnoses Unspecified temporomandibular joint disorder, unspecified side (11/26/20) Physical Therapy Treatment Note PT-OP-A Visit Information Start: 11/07/20 07:26 Freq: Status: Active Protocol: Document 11/26/20 13:02 MB (Rec: 11/26/20 13:39 MB [id number]) Out-Patient Physical Therapy Visit Information Visit Information Visit Type Treatment Note Visit Note Visit Start Time 13:02 Visit Stop Time 13:42 Total Visit Minutes 40 Visit Number 7 Precautions Precautions PTSD, pt states that she is trying to get and PT ed her to tell PT if she gets and she states that she will PT-OP-B Current Condition Start: 11/07/20 07:26 Freq: Status: Active Protocol: Document 11/07/20 09:47 MB (Rec: 11/07/20 10:16 MB [id number]) Current Condition History of Current Condition Onset Date 2011 after work on top left molar and bite was off Current Complaints Left TMJ ache, weakness and sharp pain biting down on hard food History of Current Condition 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 Pt's spouse is active and has had long deployment. Pt has a history of PTSD with sleep paralysis occ at night, bruxism, pancreatic issues and pt saw director account management to assist with her with diet. Pt reports ringing in both ears 1-2x/every two weeks. She denies headache, dizziness and neck pain. She does report a history of low BP that made her feel off. She is concerned about flattening of the left TMJ per previous x- ray. She reports she had tubes in her ears when she was little d /t drainage. She is trying to get . She has seasonal allergies. Pt had wisdom teeth out in October 2019. She was given a bite guard and then she got a crown and then she did not use it anymore. Pt reports that it is easy and comfortable to close with her back teeth together, pt feels her back teeth touching when clicking them together. It feels like pressure is on the middle teeth and not on the back molars when she taps her teeth together. In the morning , she feels feels stiff and arthritic type pain in her left TMJ area. If she bites in an apple or nut, she feels sharp pain in the left TMJ area. She cannot bite down hard with her teeth. It feels like her jaw might break and she has the sharp pain and so she avoids it. Pt feels her body tightening up at night, including her arms. She liked craniosacral therapy in the past. She felt relief with it. She also felt relief with massage therapy. It is like a valve opening up and more mobility in her left TMJ. Pt sleeps on her back with one pillow under her head. She occ wakes up on her stomach with her head turned to the left. She has a memory foam mattress. She likes it. She gets cold at night. She got a weighted blanket. She gets up 1-2x/night to urinate. She denies apnea and walking in her sleep. She has 2 dogs and a cat in the room. The cat occ gets on the bed. The cat occ inhibits movement. Treatment Goals Patient/Caregiver Goals To bite down hard without pain , waking up with less jaw pain and tension, learning techniques that will help her in the future. PT-OP-C Subjective Start: 11/07/20 07:26 Freq: Status: Active Protocol: Document 11/26/20 13:02 MB (Rec: 11/26/20 13:39 MB [id number]) OP-PT Subjective Patient Comments Patient Comments Pt states that mobility with the jaw without pain has moved from about a 6 to an 8. The catch is better. PT-OP-J Posture/Palpation/Skin Start: 11/07/20 07:26 Freq: Status: Active Protocol: Document 11/07/20 09:47 MB (Rec: 11/07/20 16:05 MB [id number]) Posture Evaluation Comments Posture Comments Standing posture: Pt states with head in mild SB posture that she corrects and it changes. She states this is a long-standing posture of hers. She presents with forward head, rounded shoulders, decreased cervical lordosis, Dowager's hump, decreased thoracic kyphosis, anterior tilt pelvis, mid clavicular protrusion B, right scapula lower than the left, right iliac crest higher than the left. Skin Assessment Other Assessments Skin Assessment Comments Increased tension right greater than left SCM, left temporalis PT-OP-K Range of Motion Start: 11/07/20 07:26 Freq: Status: Active Protocol: Document 11/07/20 09:47 MB (Rec: 11/07/20 16:05 MB [id number]) Cervical Spine Range of Motion Cervical Spine Active Testing Position Standing Flexion 35 Extension 40 Rotation Left 50 Rotation Right 50 Lateral Flexion Left 35 Lateral Flexion Right 25 TMJ Range of Motion Comments Comments Mild deviation to the left with mandiublar depression. 32 mm depression today PT-OP-Q Treatments Start: 11/07/20 07:26 Freq: Status: Active Protocol: Document 11/26/20 13:02 MB (Rec: 11/26/20 13:39 MB [id number]) Therapeutic Exercises Supine Exercises Pool noodle exercises Supine Exercise Name Abdominal drawing in, opposite arm flexion, Ts, Xs and pect stretch Comments Performed over teal pool noodle today, added to HEP Buteyko breathing Supine Exercise Name Revised ed to include 6 reps and and 30 sec hold Comments Updated ed and pt practices Standing Exercises MWM infraspinatus Comments Performed today B PT-OP-T Assessment and Plan Start: 11/07/20 07:26 Freq: Status: Active Protocol: Document 11/26/20 13:02 MB (Rec: 11/26/20 13:39 MB [id number]) Physical Therapy Assessment Rehab Potential Rehabilitation Potential Good Evaluation Complexity Number of Personal Factors/Comorbidities 1-2 Number of Body Systems Impaired 1-2 Clinical Presentation at Evaluation Evolving Impairments Impairments Pain,Posture,ROM,Soft Tissue Mobility Goals 3 Garage Helper Goal (LTG) Pt will perform progressive HEP with I including postural, relaxation, flexibility, and self-myofascial exercises to improve pain, posture and function by 01/07/21. LTG Duration 8 weeks 2 Longterm Goal (LTG) Pt will report an overall 75% improvement in left TMJ symptoms with sleeping and waking to improve quality of sleep and life by 01/07/21. LTG Duration 8 weeks 1 Garage Helper Goal (LTG) Pt will report a 75% improvement in pain and strength ability of biting into a hard food such as an apple by 01/07/21. LTG Duration 8 weeks Assessment Summary Assessment Progressed exercises today including Buteyko breathing. Pt holding 26 -30 sec for basic exercise 1 and diaphragm breathing and working on soft inhalation. Pt is progressing well and tolerating exercises well. Consider further pool noodle exercises for strengthening and core. Con't per POC including manual work and therapeutic exericse. Physical Therapy Plan Frequency and Duration Frequency of Treatment 2x/Week Duration of Treatment 8 weeks Plan of Care Start Date 11/07/20 Plan of Care End Date 01/07/21 Therapeutic Interventions Therapeutic Interventions Balance Training,Canalithic Repositioning,Home Exercise Program,Joint Mobilizations, Manual Therapy,Neuromuscular Re-education,Patient/Caregiver Education,Self-Care/Home Management,Soft Tissue Mobilization,Taping, Therapeutic Activities, Therapeutic Exercises Modalities Cold Pack/Ice Massage,Hot Packs Next Visit Focus/Plan Next Note Type Treatment Note Next Visit Plan Ongoing manual work including Counterstrain, consider strengthening over the pool noodle, core training
--- NOTE | 2020-11-28 10:34 | PT.OTN ---
Current Diagnoses Unspecified temporomandibular joint disorder, unspecified side (11/28/20) Physical Therapy Treatment Note PT-OP-A Visit Information Start: 11/07/20 07:26 Freq: Status: Active Protocol: Document 11/28/20 09:47 MB (Rec: 11/28/20 10:23 MB [id number]) Out-Patient Physical Therapy Visit Information Visit Information Visit Type Treatment Note Visit Note Visit Start Time 09:47 Visit Stop Time 10:30 Total Visit Minutes 43 Visit Number 8 Precautions Precautions PTSD, pt states that she is trying to get and PT ed her to tell PT if she gets and she states that she will PT-OP-B Current Condition Start: 11/07/20 07:26 Freq: Status: Active Protocol: Document 11/07/20 09:47 MB (Rec: 11/07/20 10:16 MB [id number]) Current Condition History of Current Condition Onset Date 2011 after work on top left molar and bite was off Current Complaints Left TMJ ache, weakness and sharp pain biting down on hard food History of Current Condition 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 Pt's spouse is active and has had long deployment. Pt has a history of PTSD with sleep paralysis occ at night, bruxism, pancreatic issues and pt saw hotel assistant general manager to assist with her with diet. Pt reports ringing in both ears 1-2x/every two weeks. She denies headache, dizziness and neck pain. She does report a history of low BP that made her feel off. She is concerned about flattening of the left TMJ per previous x- ray. She reports she had tubes in her ears when she was little d /t drainage. She is trying to get . She has seasonal allergies. Pt had wisdom teeth out in October 2019. She was given a bite guard and then she got a crown and then she did not use it anymore. Pt reports that it is easy and comfortable to close with her back teeth together, pt feels her back teeth touching when clicking them together. It feels like pressure is on the middle teeth and not on the back molars when she taps her teeth together. In the morning , she feels feels stiff and arthritic type pain in her left TMJ area. If she bites in an apple or nut, she feels sharp pain in the left TMJ area. She cannot bite down hard with her teeth. It feels like her jaw might break and she has the sharp pain and so she avoids it. Pt feels her body tightening up at night, including her arms. She liked craniosacral therapy in the past. She felt relief with it. She also felt relief with massage therapy. It is like a valve opening up and more mobility in her left TMJ. Pt sleeps on her back with one pillow under her head. She occ wakes up on her stomach with her head turned to the left. She has a memory foam mattress. She likes it. She gets cold at night. She got a weighted blanket. She gets up 1-2x/night to urinate. She denies apnea and walking in her sleep. She has 2 dogs and a cat in the room. The cat occ gets on the bed. The cat occ inhibits movement. Treatment Goals Patient/Caregiver Goals To bite down hard without pain , waking up with less jaw pain and tension, learning techniques that will help her in the future. PT-OP-C Subjective Start: 11/07/20 07:26 Freq: Status: Active Protocol: Document 11/28/20 09:47 MB (Rec: 11/28/20 10:23 MB [id number]) OP-PT Subjective Patient Comments Patient Comments Pt states that one of her fish this morning. Pt states that she and her con't to do a lot of work outside including cutting and stacking wood. PT-OP-J Posture/Palpation/Skin Start: 11/07/20 07:26 Freq: Status: Active Protocol: Document 11/07/20 09:47 MB (Rec: 11/07/20 16:05 MB [id number]) Posture Evaluation Comments Posture Comments Standing posture: Pt states with head in mild SB posture that she corrects and it changes. She states this is a long-standing posture of hers. She presents with forward head, rounded shoulders, decreased cervical lordosis, Dowager's hump, decreased thoracic kyphosis, anterior tilt pelvis, mid clavicular protrusion B, right scapula lower than the left, right iliac crest higher than the left. Skin Assessment Other Assessments Skin Assessment Comments Increased tension right greater than left SCM, left temporalis PT-OP-K Range of Motion Start: 11/07/20 07:26 Freq: Status: Active Protocol: Document 11/07/20 09:47 MB (Rec: 11/07/20 16:05 MB [id number]) Cervical Spine Range of Motion Cervical Spine Active Testing Position Standing Flexion 35 Extension 40 Rotation Left 50 Rotation Right 50 Lateral Flexion Left 35 Lateral Flexion Right 25 TMJ Range of Motion Comments Comments Mild deviation to the left with mandiublar depression. 32 mm depression today PT-OP-Q Treatments Start: 11/07/20 07:26 Freq: Status: Active Protocol: Document 11/28/20 09:47 MB (Rec: 11/28/20 10:23 MB [id number]) Therapeutic Exercises Supine Exercises Core progession exercises Supine Exercise Name Abd drawing in set, knee rock, knee fall out, HS, mini october Side bilateral Comments 10 reps Pelvic realignment exercises Side bilateral Comments 5 reps, 3 sec hold all three exercises Standing Exercises MWM infraspinatus Standing Exercise Name Also reviewed intrascapular massage Comments Verbally reviewed today Self-Care/Home Management Treatment Education Other Education Education about neck position for relaxation for core and pelvic realignment exercises, work at home, core engagment with work and moving feet before lifting tasks. Ed on layers of core muscles, engagement of TrAbd PT-OP-T Assessment and Plan Start: 11/07/20 07:26 Freq: Status: Active Protocol: Document 11/28/20 09:47 MB (Rec: 11/28/20 10:23 MB [id number]) Physical Therapy Assessment Rehab Potential Rehabilitation Potential Good Evaluation Complexity Number of Personal Factors/Comorbidities 1-2 Number of Body Systems Impaired 1-2 Clinical Presentation at Evaluation Evolving Impairments Impairments Pain,Posture,ROM,Soft Tissue Mobility Goals 3 Senior Care Goal (LTG) Pt will perform progressive HEP with I including postural, relaxation, flexibility, and self-myofascial exercises to improve pain, posture and function by 01/07/21. LTG Duration 8 weeks 2 Acidizer Water Well Goal (LTG) Pt will report an overall 75% improvement in left TMJ symptoms with sleeping and waking to improve quality of sleep and life by 01/07/21. LTG Duration 8 weeks 1 Acidizer Water Well Goal (LTG) Pt will report a 75% improvement in pain and strength ability of biting into a hard food such as an apple by 01/07/21. LTG Duration 8 weeks Assessment Summary Assessment Progressed pelvic realignment exercises today as well as core exercises to promote alignment, postural improvement and core engagement with exercises. Con 't per POC and plan below. Ed pt in keeping neck relaxed with pelvic realignment and core exercises and to carryover this with work at home (core engaged and neck relaxed, move feet). Physical Therapy Plan Frequency and Duration Frequency of Treatment 2x/Week Duration of Treatment 8 weeks Plan of Care Start Date 11/07/20 Plan of Care End Date 01/07/21 Therapeutic Interventions Therapeutic Interventions Balance Training,Canalithic Repositioning,Home Exercise Program,Joint Mobilizations, Manual Therapy,Neuromuscular Re-education,Patient/Caregiver Education,Self-Care/Home Management,Soft Tissue Mobilization,Taping, Therapeutic Activities, Therapeutic Exercises Modalities Cold Pack/Ice Massage,Hot Packs Next Visit Focus/Plan Next Note Type Treatment Note Next Visit Plan Ongoing manual work including Counterstrain, consider strengthening over the pool noodle
--- NOTE | 2020-12-03 10:25 | PT.OTN ---
Current Diagnoses Unspecified temporomandibular joint disorder, unspecified side (12/03/20) Physical Therapy Treatment Note PT-OP-A Visit Information Start: 11/07/20 07:26 Freq: Status: Active Protocol: Document 12/03/20 09:45 MB (Rec: 12/03/20 10:24 MB [id number]) Out-Patient Physical Therapy Visit Information Visit Information Visit Type Treatment Note Visit Note Visit Start Time 09:45 Visit Stop Time 10:25 Total Visit Minutes 40 Visit Number 9 Precautions Precautions PTSD, pt states that she is trying to get and PT ed her to tell PT if she gets and she states that she will PT-OP-B Current Condition Start: 11/07/20 07:26 Freq: Status: Active Protocol: Document 11/07/20 09:47 MB (Rec: 11/07/20 10:16 MB [id number]) Current Condition History of Current Condition Onset Date 2011 after work on top left molar and bite was off Current Complaints Left TMJ ache, weakness and sharp pain biting down on hard food History of Current Condition 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 Pt's spouse is active and has had long deployment. Pt has a history of PTSD with sleep paralysis occ at night, bruxism, pancreatic issues and pt saw dent remover to assist with her with diet. Pt reports ringing in both ears 1-2x/every two weeks. She denies headache, dizziness and neck pain. She does report a history of low BP that made her feel off. She is concerned about flattening of the left TMJ per previous x- ray. She reports she had tubes in her ears when she was little d /t drainage. She is trying to get . She has seasonal allergies. Pt had wisdom teeth out in October 2019. She was given a bite guard and then she got a crown and then she did not use it anymore. Pt reports that it is easy and comfortable to close with her back teeth together, pt feels her back teeth touching when clicking them together. It feels like pressure is on the middle teeth and not on the back molars when she taps her teeth together. In the morning , she feels feels stiff and arthritic type pain in her left TMJ area. If she bites in an apple or nut, she feels sharp pain in the left TMJ area. She cannot bite down hard with her teeth. It feels like her jaw might break and she has the sharp pain and so she avoids it. Pt feels her body tightening up at night, including her arms. She liked craniosacral therapy in the past. She felt relief with it. She also felt relief with massage therapy. It is like a valve opening up and more mobility in her left TMJ. Pt sleeps on her back with one pillow under her head. She occ wakes up on her stomach with her head turned to the left. She has a memory foam mattress. She likes it. She gets cold at night. She got a weighted blanket. She gets up 1-2x/night to urinate. She denies apnea and walking in her sleep. She has 2 dogs and a cat in the room. The cat occ gets on the bed. The cat occ inhibits movement. Treatment Goals Patient/Caregiver Goals To bite down hard without pain , waking up with less jaw pain and tension, learning techniques that will help her in the future. PT-OP-C Subjective Start: 11/07/20 07:26 Freq: Status: Active Protocol: Document 12/03/20 09:45 MB (Rec: 12/03/20 10:24 MB [id number]) OP-PT Subjective Patient Comments Patient Comments Pt brings in the pool noodle and states that she would like a refresher with these exercises. PT-OP-J Posture/Palpation/Skin Start: 11/07/20 07:26 Freq: Status: Active Protocol: Document 11/07/20 09:47 MB (Rec: 11/07/20 16:05 MB [id number]) Posture Evaluation Comments Posture Comments Standing posture: Pt states with head in mild SB posture that she corrects and it changes. She states this is a long-standing posture of hers. She presents with forward head, rounded shoulders, decreased cervical lordosis, Dowager's hump, decreased thoracic kyphosis, anterior tilt pelvis, mid clavicular protrusion B, right scapula lower than the left, right iliac crest higher than the left. Skin Assessment Other Assessments Skin Assessment Comments Increased tension right greater than left SCM, left temporalis PT-OP-K Range of Motion Start: 11/07/20 07:26 Freq: Status: Active Protocol: Document 11/07/20 09:47 MB (Rec: 11/07/20 16:05 MB [id number]) Cervical Spine Range of Motion Cervical Spine Active Testing Position Standing Flexion 35 Extension 40 Rotation Left 50 Rotation Right 50 Lateral Flexion Left 35 Lateral Flexion Right 25 TMJ Range of Motion Comments Comments Mild deviation to the left with mandiublar depression. 32 mm depression today PT-OP-Q Treatments Start: 11/07/20 07:26 Freq: Status: Active Protocol: Document 12/03/20 09:45 MB (Rec: 12/03/20 10:24 MB [id number]) Therapeutic Exercises Supine Exercises Shoulder flexion and elbow flexion and extension Side bilateral Equipment Used Yellow looped band Comments 10 reps each exercises Shoulder strengthening with band Supine Exercise Name ER, horizontal abduction with arms straight, PNF Side bilateral Equipment Used [employer] pool noodle Reps/Minutes Level 1 band Comments 10 reps Core progession exercises Supine Exercise Name Abd drawing in set, knee rock, knee fall out, HS, mini march Side bilateral Comments 10 reps Pool noodle exercises Supine Exercise Name Abdominal drawing in, shoulder flexion together and alternating, half x Equipment Used Pt's blue pool noodle Comments 10 reps x2; then pect stretch with MWM PT-OP-T Assessment and Plan Start: 11/07/20 07:26 Freq: Status: Active Protocol: Document 12/03/20 09:45 MB (Rec: 12/03/20 10:24 MB [id number]) Physical Therapy Assessment Rehab Potential Rehabilitation Potential Good Evaluation Complexity Number of Personal Factors/Comorbidities 1-2 Number of Body Systems Impaired 1-2 Clinical Presentation at Evaluation Evolving Impairments Impairments Pain,Posture,ROM,Soft Tissue Mobility Goals 3 Food Specialist Goal (LTG) Pt will perform progressive HEP with I including postural, relaxation, flexibility, and self-myofascial exercises to improve pain, posture and function by 01/07/21. LTG Duration 8 weeks 2 Food Specialist Goal (LTG) Pt will report an overall 75% improvement in left TMJ symptoms with sleeping and waking to improve quality of sleep and life by 01/07/21. LTG Duration 8 weeks 1 Food Specialist Goal (LTG) Pt will report a 75% improvement in pain and strength ability of biting into a hard food such as an apple by 01/07/21. LTG Duration 8 weeks Assessment Summary Assessment Progressed shoulder strengthening on pool noodle today and pt performs well. Plan for progress note next treatment date and review her handouts. Physical Therapy Plan Frequency and Duration Frequency of Treatment 2x/Week Duration of Treatment 8 weeks Plan of Care Start Date 11/07/20 Plan of Care End Date 01/07/21 Therapeutic Interventions Therapeutic Interventions Balance Training,Canalithic Repositioning,Home Exercise Program,Joint Mobilizations, Manual Therapy,Neuromuscular Re-education,Patient/Caregiver Education,Self-Care/Home Management,Soft Tissue Mobilization,Taping, Therapeutic Activities, Therapeutic Exercises Modalities Cold Pack/Ice Massage,Hot Packs Next Visit Focus/Plan Next Note Type Progress Note Next Visit Plan Ongoing manual work including Counterstrain, cervical isometric exercise
--- NOTE | 2020-12-05 13:29 | PT.OTN ---
Current Diagnoses Unspecified temporomandibular joint disorder, unspecified side (12/05/20) Physical Therapy Treatment Note PT-OP-A Visit Information Start: 11/07/20 07:26 Freq: Status: Active Protocol: Document 12/05/20 09:51 MB (Rec: 12/05/20 10:29 MB [id number]) Out-Patient Physical Therapy Visit Information Visit Information Visit Type Progress Note Visit Note Visit Start Time 09:51 Visit Stop Time 10:30 Total Visit Minutes 39 Visit Number 10 Precautions Precautions PTSD, pt states that she is trying to get and PT ed her to tell PT if she gets and she states that she will PT-OP-B Current Condition Start: 11/07/20 07:26 Freq: Status: Active Protocol: Document 11/07/20 09:47 MB (Rec: 11/07/20 10:16 MB [id number]) Current Condition History of Current Condition Onset Date 2011 after work on top left molar and bite was off Current Complaints Left TMJ ache, weakness and sharp pain biting down on hard food History of Current Condition 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 Pt's spouse is active and has had long deployment. Pt has a history of PTSD with sleep paralysis occ at night, bruxism, pancreatic issues and pt saw dispensing operator to assist with her with diet. Pt reports ringing in both ears 1-2x/every two weeks. She denies headache, dizziness and neck pain. She does report a history of low BP that made her feel off. She is concerned about flattening of the left TMJ per previous x- ray. She reports she had tubes in her ears when she was little d /t drainage. She is trying to get . She has seasonal allergies. Pt had wisdom teeth out in October 2019. She was given a bite guard and then she got a crown and then she did not use it anymore. Pt reports that it is easy and comfortable to close with her back teeth together, pt feels her back teeth touching when clicking them together. It feels like pressure is on the middle teeth and not on the back molars when she taps her teeth together. In the morning , she feels feels stiff and arthritic type pain in her left TMJ area. If she bites in an apple or nut, she feels sharp pain in the left TMJ area. She cannot bite down hard with her teeth. It feels like her jaw might break and she has the sharp pain and so she avoids it. Pt feels her body tightening up at night, including her arms. She liked craniosacral therapy in the past. She felt relief with it. She also felt relief with massage therapy. It is like a valve opening up and more mobility in her left TMJ. Pt sleeps on her back with one pillow under her head. She occ wakes up on her stomach with her head turned to the left. She has a memory foam mattress. She likes it. She gets cold at night. She got a weighted blanket. She gets up 1-2x/night to urinate. She denies apnea and walking in her sleep. She has 2 dogs and a cat in the room. The cat occ gets on the bed. The cat occ inhibits movement. Treatment Goals Patient/Caregiver Goals To bite down hard without pain , waking up with less jaw pain and tension, learning techniques that will help her in the future. PT-OP-C Subjective Start: 11/07/20 07:26 Freq: Status: Active Protocol: Document 12/05/20 09:51 MB (Rec: 12/05/20 10:29 MB [id number]) OP-PT Subjective Patient Comments Patient Comments I really like the pool noodle exercises. I don't feel my neck at all with the exercises . Pt staets that she feels a lot looser on her left side. Her muscles are not as tight. Her nervous system hypervigilance has declined, especially with the breathing. She bit into a harder granola bar and she had similar pain to biting into an apple. It felt like a sharp pain like a nerve pain towards the left TMJ. PT-OP-J Posture/Palpation/Skin Start: 11/07/20 07:26 Freq: Status: Active Protocol: Document 11/07/20 09:47 MB (Rec: 11/07/20 16:05 MB [id number]) Posture Evaluation Comments Posture Comments Standing posture: Pt states with head in mild SB posture that she corrects and it changes. She states this is a long-standing posture of hers. She presents with forward head, rounded shoulders, decreased cervical lordosis, Dowager's hump, decreased thoracic kyphosis, anterior tilt pelvis, mid clavicular protrusion B, right scapula lower than the left, right iliac crest higher than the left. Skin Assessment Other Assessments Skin Assessment Comments Increased tension right greater than left SCM, left temporalis PT-OP-K Range of Motion Start: 11/07/20 07:26 Freq: Status: Active Protocol: Document 11/07/20 09:47 MB (Rec: 11/07/20 16:05 MB [id number]) Cervical Spine Range of Motion Cervical Spine Active Testing Position Standing Flexion 35 Extension 40 Rotation Left 50 Rotation Right 50 Lateral Flexion Left 35 Lateral Flexion Right 25 TMJ Range of Motion Comments Comments Mild deviation to the left with mandiublar depression. 32 mm depression today PT-OP-Q Treatments Start: 11/07/20 07:26 Freq: Status: Active Protocol: Document 12/05/20 09:51 MB (Rec: 12/05/20 10:29 MB [id number]) Therapeutic Exercises Standing Exercises MWM infraspinatus Standing Exercise Name Performed today and also intrascapular STM Side bilateral Manual Therapy Treatment Other Other Manual Treatments Pt agrees to Counterstrain to assess and treat fascial tension and she presents with tension in the following fascial systems: right ligamentum flavum and periosteal at cranium and cervical area, right trigeminal and fascial, spinal medullary left, and cranial parasympathetic. PT treats stacks in the following systems: spinal medullary system. Self-Care/Home Management Treatment Education Other Education Given pain with biting into apple and granola bar, ed pt to try biting into smaller hard foods like carrots and nuts with front teeth that do not require as much mandiublar depression and disc displacement and pt reports understanding Ed pt in benefits of Counterstrain for fascial components to her jaw symptoms and this is where PT will be focused in future treatment dates with her con't self-care and HEP PT-OP-T Assessment and Plan Start: 11/07/20 07:26 Freq: Status: Active Protocol: Document 12/05/20 09:51 MB (Rec: 12/05/20 10:29 MB [id number]) Physical Therapy Assessment Rehab Potential Rehabilitation Potential Good Evaluation Complexity Number of Personal Factors/Comorbidities 1-2 Number of Body Systems Impaired 1-2 Clinical Presentation at Evaluation Evolving Impairments Impairments Pain,Posture,ROM,Soft Tissue Mobility Goals 3 Low Pressure Firer Goal (LTG) Pt will perform progressive HEP with I including postural, relaxation, flexibility, and self-myofascial exercises to improve pain, posture and function by 01/30/21. 12/05/20: Pt is racquet ball massage, use of back outside installation machinist, pool noodle progression, Buteyko breathing exercises, SCM MWM, core progression, pelvic realignment exercises LTG Duration 8 weeks 2 Low Pressure Firer Goal (LTG) Pt will report an overall 75% improvement in left TMJ symptoms with sleeping and waking to improve quality of sleep and life by 01/30/21. 12/05/20: Pt reports an 85-90% improvement TMJ symptoms with sleeping and waking with breathing exercises being the most helpful LTG Duration Met 1 Low Pressure Firer Goal (LTG) Pt will report a 75% improvement in pain and strength ability of biting into a hard food such as an apple by 01/30/21. 12/05/20: Pt reports 0% improvement towards this pain goal. LTG Duration 8 weeks Assessment Summary Assessment Goal for TMJ pain during and upon awaking from sleep is met . She has progressed towards HEP goal and is performing exercises well. She has a lot of exercises and PT will now focus on what PT can do manually for pt to help pain that is like anatomical in nature with regard to left TMJ , cervical spine and thorax. She responds well to Counterstrain treatment today and will con't to monitor fascial and subjective responses. She con't with pain with biting into hard foods. Will revise HEP as needed. Pt will benefit from further PT for manual intervention to address fascial/anatomical changes. Barriers include dental procedures and changes. Physical Therapy Plan Frequency and Duration Frequency of Treatment 2x/Week Duration of Treatment 8 weeks Plan of Care Start Date 12/05/20 Plan of Care End Date 01/30/21 Therapeutic Interventions Therapeutic Interventions Balance Training,Canalithic Repositioning,Home Exercise Program,Joint Mobilizations, Manual Therapy,Neuromuscular Re-education,Patient/Caregiver Education,Self-Care/Home Management,Soft Tissue Mobilization,Taping, Therapeutic Activities, Therapeutic Exercises Modalities Cold Pack/Ice Massage,Hot Packs Next Visit Focus/Plan Next Note Type Progress Note Next Visit Plan Ongoing manual work including Counterstrain, cervical isometric exercise
--- NOTE | 2020-12-05 13:30 | PT.OPPOC ---
Physical, Occupational & Speech Therapy At [facility] Current Diagnoses Unspecified temporomandibular joint disorder, unspecified side (12/05/20) Visit Care Team Role Provider Type DYLAN Quiroga Attending Provider [facility] Aide Primary Care Provider Referring Provider Specialty: Medical Address: [address] [place] [address], [facility] Email: [email or web address] Plan Of Care PT-OP-T Assessment and Plan Start: 11/07/20 07:26 Freq: Status: Active Protocol: Document 12/05/20 09:51 MB (Rec: 12/05/20 10:29 MB [id number]) Physical Therapy Assessment Rehab Potential Rehabilitation Potential Good Evaluation Complexity Number of Personal Factors/Comorbidities 1-2 Number of Body Systems Impaired 1-2 Clinical Presentation at Evaluation Evolving Impairments Impairments Pain,Posture,ROM,Soft Tissue Mobility Goals 3 Cardiovascular Specialist Goal (LTG) Pt will perform progressive HEP with I including postural, relaxation, flexibility, and self-myofascial exercises to improve pain, posture and function by 01/30/21. 12/05/20: Pt is racquet ball massage, use of back pharmacist technician, pool noodle progression, Buteyko breathing exercises, SCM MWM, core progression, pelvic realignment exercises LTG Duration 8 weeks 2 Skilled Nursing Goal (LTG) Pt will report an overall 75% improvement in left TMJ symptoms with sleeping and waking to improve quality of sleep and life by 01/30/21. 12/05/20: Pt reports an 85-90% improvement TMJ symptoms with sleeping and waking with breathing exercises being the most helpful LTG Duration Met 1 Skilled Nursing Goal (LTG) Pt will report a 75% improvement in pain and strength ability of biting into a hard food such as an apple by 01/30/21. 12/05/20: Pt reports 0% improvement towards this pain goal. LTG Duration 8 weeks Assessment Summary Assessment Goal for TMJ pain during and upon awaking from sleep is met . She has progressed towards HEP goal and is performing exercises well. She has a lot of exercises and PT will now focus on what PT can do manually for pt to help pain that is like anatomical in nature with regard to left TMJ , cervical spine and thorax. She responds well to Counterstrain treatment today and will con't to monitor fascial and subjective responses. She con't with pain with biting into hard foods. Will revise HEP as needed. Pt will benefit from further PT for manual intervention to address fascial/anatomical changes. Barriers include dental procedures and changes. Physical Therapy Plan Frequency and Duration Frequency of Treatment 2x/Week Duration of Treatment 8 weeks Plan of Care Start Date 12/05/20 Plan of Care End Date 01/30/21 Therapeutic Interventions Therapeutic Interventions Balance Training,Canalithic Repositioning,Home Exercise Program,Joint Mobilizations, Manual Therapy,Neuromuscular Re-education,Patient/Caregiver Education,Self-Care/Home Management,Soft Tissue Mobilization,Taping, Therapeutic Activities, Therapeutic Exercises Modalities Cold Pack/Ice Massage,Hot Packs Next Visit Focus/Plan Next Note Type Progress Note Next Visit Plan Ongoing manual work including Counterstrain, cervical isometric exercise Plan of Care Dates Plan of Care Start Date 12/05/20 Plan of Care End Date 01/30/21 Electronically Signed by: Misti Pacheco, PT 12/05/20 [id number] Please Sign and Return: I have reviewed this Plan of Care and certify that the skilled therapy services above are required to meet the patient?s needs. Physician Signature Date Printed Name and Credentials Clinical Instructor Signature Printed Name and Credentials
--- NOTE | 2020-12-12 10:30 | PT.OTN ---
Current Diagnoses Unspecified temporomandibular joint disorder, unspecified side (12/12/20) Physical Therapy Treatment Note PT-OP-A Visit Information Start: 11/07/20 07:26 Freq: Status: Active Protocol: Document 12/12/20 09:50 MB (Rec: 12/12/20 10:28 MB [id number]) Out-Patient Physical Therapy Visit Information Visit Information Visit Type Treatment Note Visit Note Visit Start Time 09:50 Visit Stop Time 10:30 Total Visit Minutes 40 Visit Number 11 Precautions Precautions PTSD, pt states that she is trying to get and PT ed her to tell PT if she gets and she states that she will PT-OP-B Current Condition Start: 11/07/20 07:26 Freq: Status: Active Protocol: Document 11/07/20 09:47 MB (Rec: 11/07/20 10:16 MB [id number]) Current Condition History of Current Condition Onset Date 2011 after work on top left molar and bite was off Current Complaints Left TMJ ache, weakness and sharp pain biting down on hard food History of Current Condition 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 Pt's spouse is active and has had long deployment. Pt has a history of PTSD with sleep paralysis occ at night, bruxism, pancreatic issues and pt saw singing messenger to assist with her with diet. Pt reports ringing in both ears 1-2x/every two weeks. She denies headache, dizziness and neck pain. She does report a history of low BP that made her feel off. She is concerned about flattening of the left TMJ per previous x- ray. She reports she had tubes in her ears when she was little d /t drainage. She is trying to get . She has seasonal allergies. Pt had wisdom teeth out in October 2019. She was given a bite guard and then she got a crown and then she did not use it anymore. Pt reports that it is easy and comfortable to close with her back teeth together, pt feels her back teeth touching when clicking them together. It feels like pressure is on the middle teeth and not on the back molars when she taps her teeth together. In the morning , she feels feels stiff and arthritic type pain in her left TMJ area. If she bites in an apple or nut, she feels sharp pain in the left TMJ area. She cannot bite down hard with her teeth. It feels like her jaw might break and she has the sharp pain and so she avoids it. Pt feels her body tightening up at night, including her arms. She liked craniosacral therapy in the past. She felt relief with it. She also felt relief with massage therapy. It is like a valve opening up and more mobility in her left TMJ. Pt sleeps on her back with one pillow under her head. She occ wakes up on her stomach with her head turned to the left. She has a memory foam mattress. She likes it. She gets cold at night. She got a weighted blanket. She gets up 1-2x/night to urinate. She denies apnea and walking in her sleep. She has 2 dogs and a cat in the room. The cat occ gets on the bed. The cat occ inhibits movement. Treatment Goals Patient/Caregiver Goals To bite down hard without pain , waking up with less jaw pain and tension, learning techniques that will help her in the future. PT-OP-C Subjective Start: 11/07/20 07:26 Freq: Status: Active Protocol: Document 12/12/20 09:50 MB (Rec: 12/12/20 10:28 MB [id number]) OP-PT Subjective Patient Comments Patient Comments Pt states that she gave up coffee. PT-OP-J Posture/Palpation/Skin Start: 11/07/20 07:26 Freq: Status: Active Protocol: Document 11/07/20 09:47 MB (Rec: 11/07/20 16:05 MB [id number]) Posture Evaluation Comments Posture Comments Standing posture: Pt states with head in mild SB posture that she corrects and it changes. She states this is a long-standing posture of hers. She presents with forward head, rounded shoulders, decreased cervical lordosis, Dowager's hump, decreased thoracic kyphosis, anterior tilt pelvis, mid clavicular protrusion B, right scapula lower than the left, right iliac crest higher than the left. Skin Assessment Other Assessments Skin Assessment Comments Increased tension right greater than left SCM, left temporalis PT-OP-K Range of Motion Start: 11/07/20 07:26 Freq: Status: Active Protocol: Document 11/07/20 09:47 MB (Rec: 11/07/20 16:05 MB [id number]) Cervical Spine Range of Motion Cervical Spine Active Testing Position Standing Flexion 35 Extension 40 Rotation Left 50 Rotation Right 50 Lateral Flexion Left 35 Lateral Flexion Right 25 TMJ Range of Motion Comments Comments Mild deviation to the left with mandiublar depression. 32 mm depression today PT-OP-Q Treatments Start: 11/07/20 07:26 Freq: Status: Active Protocol: Document 12/12/20 09:50 MB (Rec: 12/12/20 10:28 MB [id number]) Manual Therapy Treatment Other Other Manual Treatments Pt agrees to Counterstrain to assess and treat fascial tension and she presents with tension in the following fascial systems: periosteal. PT treats LV stacks in C1 area all tight systems to prepare to assess cranial periosteal. PT treats C1 extended periosteal PT-OP-T Assessment and Plan Start: 11/07/20 07:26 Freq: Status: Active Protocol: Document 12/12/20 09:50 MB (Rec: 12/12/20 10:28 MB [id number]) Physical Therapy Assessment Rehab Potential Rehabilitation Potential Good Evaluation Complexity Number of Personal Factors/Comorbidities 1-2 Number of Body Systems Impaired 1-2 Clinical Presentation at Evaluation Evolving Impairments Impairments Pain,Posture,ROM,Soft Tissue Mobility Goals 3 Fdc Goal (LTG) Pt will perform progressive HEP with I including postural, relaxation, flexibility, and self-myofascial exercises to improve pain, posture and function by 01/30/21. 12/05/20: Pt is racquet ball massage, use of back paper cutting machine operator, pool noodle progression, Buteyko breathing exercises, SCM MWM, core progression, pelvic realignment exercises LTG Duration 8 weeks 2 Airborne Operations Goal (LTG) Pt will report an overall 75% improvement in left TMJ symptoms with sleeping and waking to improve quality of sleep and life by 01/30/21. 12/05/20: Pt reports an 85-90% improvement TMJ symptoms with sleeping and waking with breathing exercises being the most helpful LTG Duration Met 1 Airborne Operations Goal (LTG) Pt will report a 75% improvement in pain and strength ability of biting into a hard food such as an apple by 01/30/21. 12/05/20: Pt reports 0% improvement towards this pain goal. LTG Duration 8 weeks Assessment Summary Assessment Pt responds well to treatment and reports sensation in top right molar with SCM palpation on the right and after treating extended C1 on the right. She will benefit from further Counterstrain work and self-massage training for right SCM. Physical Therapy Plan Frequency and Duration Frequency of Treatment 2x/Week Duration of Treatment 8 weeks Plan of Care Start Date 12/05/20 Plan of Care End Date 01/30/21 Therapeutic Interventions Therapeutic Interventions Balance Training,Canalithic Repositioning,Home Exercise Program,Joint Mobilizations, Manual Therapy,Neuromuscular Re-education,Patient/Caregiver Education,Self-Care/Home Management,Soft Tissue Mobilization,Taping, Therapeutic Activities, Therapeutic Exercises Modalities Cold Pack/Ice Massage,Hot Packs Next Visit Focus/Plan Next Note Type Progress Note Next Visit Plan Ongoing manual work including Counterstrain, self massage SCM, cervical isometric exercise
--- NOTE | 2020-12-17 10:29 | PT.OTN ---
Current Diagnoses Unspecified temporomandibular joint disorder, unspecified side (12/17/20) Physical Therapy Treatment Note PT-OP-A Visit Information Start: 11/07/20 07:26 Freq: Status: Active Protocol: Document 12/17/20 09:48 MB (Rec: 12/17/20 10:28 MB [id number]) Out-Patient Physical Therapy Visit Information Visit Information Visit Type Treatment Note Visit Note Visit Start Time 09:48 Visit Stop Time 10:28 Total Visit Minutes 40 Visit Number 12 Precautions Precautions PTSD, pt states that she is trying to get and PT ed her to tell PT if she gets and she states that she will PT-OP-B Current Condition Start: 11/07/20 07:26 Freq: Status: Active Protocol: Document 11/07/20 09:47 MB (Rec: 11/07/20 10:16 MB [id number]) Current Condition History of Current Condition Onset Date 2011 after work on top left molar and bite was off Current Complaints Left TMJ ache, weakness and sharp pain biting down on hard food History of Current Condition 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 Pt's spouse is active and has had long deployment. Pt has a history of PTSD with sleep paralysis occ at night, bruxism, pancreatic issues and pt saw steamer gum candy to assist with her with diet. Pt reports ringing in both ears 1-2x/every two weeks. She denies headache, dizziness and neck pain. She does report a history of low BP that made her feel off. She is concerned about flattening of the left TMJ per previous x- ray. She reports she had tubes in her ears when she was little d /t drainage. She is trying to get . She has seasonal allergies. Pt had wisdom teeth out in October 2019. She was given a bite guard and then she got a crown and then she did not use it anymore. Pt reports that it is easy and comfortable to close with her back teeth together, pt feels her back teeth touching when clicking them together. It feels like pressure is on the middle teeth and not on the back molars when she taps her teeth together. In the morning , she feels feels stiff and arthritic type pain in her left TMJ area. If she bites in an apple or nut, she feels sharp pain in the left TMJ area. She cannot bite down hard with her teeth. It feels like her jaw might break and she has the sharp pain and so she avoids it. Pt feels her body tightening up at night, including her arms. She liked craniosacral therapy in the past. She felt relief with it. She also felt relief with massage therapy. It is like a valve opening up and more mobility in her left TMJ. Pt sleeps on her back with one pillow under her head. She occ wakes up on her stomach with her head turned to the left. She has a memory foam mattress. She likes it. She gets cold at night. She got a weighted blanket. She gets up 1-2x/night to urinate. She denies apnea and walking in her sleep. She has 2 dogs and a cat in the room. The cat occ gets on the bed. The cat occ inhibits movement. Treatment Goals Patient/Caregiver Goals To bite down hard without pain , waking up with less jaw pain and tension, learning techniques that will help her in the future. PT-OP-C Subjective Start: 11/07/20 07:26 Freq: Status: Active Protocol: Document 12/17/20 09:48 MB (Rec: 12/17/20 10:28 MB [id number]) OP-PT Subjective Patient Comments Patient Comments Pt states that she did a lot gardening over the weekend. She had some sugar and it made her feel off. PT-OP-J Posture/Palpation/Skin Start: 11/07/20 07:26 Freq: Status: Active Protocol: Document 11/07/20 09:47 MB (Rec: 11/07/20 16:05 MB [id number]) Posture Evaluation Comments Posture Comments Standing posture: Pt states with head in mild SB posture that she corrects and it changes. She states this is a long-standing posture of hers. She presents with forward head, rounded shoulders, decreased cervical lordosis, Dowager's hump, decreased thoracic kyphosis, anterior tilt pelvis, mid clavicular protrusion B, right scapula lower than the left, right iliac crest higher than the left. Skin Assessment Other Assessments Skin Assessment Comments Increased tension right greater than left SCM, left temporalis PT-OP-K Range of Motion Start: 11/07/20 07:26 Freq: Status: Active Protocol: Document 11/07/20 09:47 MB (Rec: 11/07/20 16:05 MB [id number]) Cervical Spine Range of Motion Cervical Spine Active Testing Position Standing Flexion 35 Extension 40 Rotation Left 50 Rotation Right 50 Lateral Flexion Left 35 Lateral Flexion Right 25 TMJ Range of Motion Comments Comments Mild deviation to the left with mandiublar depression. 32 mm depression today PT-OP-Q Treatments Start: 11/07/20 07:26 Freq: Status: Active Protocol: Document 12/17/20 09:48 MB (Rec: 12/17/20 10:28 MB [id number]) Therapeutic Exercises Supine Exercises Self SCM MWM Supine Exercise Name hook lying, then sitting-- better sitting Side bilateral Comments Head and neck supported with pillow and towel roll, pt palpates and rotates Buteyko breathing Supine Exercise Name Reduced breathing 1, pt performs with I Comments 3 reps Manual Therapy Treatment Other Other Manual Treatments MWM right greater than left SCM, middle scalene with PT performing TrP pressure and pt performing active cervical rotation away; positional release and MWM B upper traps as well, B pects positional release; Counterstrain: treated cervical LF that scanned PT-OP-T Assessment and Plan Start: 11/07/20 07:26 Freq: Status: Active Protocol: Document 12/17/20 09:48 MB (Rec: 12/17/20 10:28 MB [id number]) Physical Therapy Assessment Rehab Potential Rehabilitation Potential Good Evaluation Complexity Number of Personal Factors/Comorbidities 1-2 Number of Body Systems Impaired 1-2 Clinical Presentation at Evaluation Evolving Impairments Impairments Pain,Posture,ROM,Soft Tissue Mobility Goals 3 Manager Security Goal (LTG) Pt will perform progressive HEP with I including postural, relaxation, flexibility, and self-myofascial exercises to improve pain, posture and function by 01/30/21. 12/05/20: Pt is racquet ball massage, use of back pig sticker, pool noodle progression, Buteyko breathing exercises, SCM MWM, core progression, pelvic realignment exercises LTG Duration 8 weeks 2 Manager Security Goal (LTG) Pt will report an overall 75% improvement in left TMJ symptoms with sleeping and waking to improve quality of sleep and life by 01/30/21. 12/05/20: Pt reports an 85-90% improvement TMJ symptoms with sleeping and waking with breathing exercises being the most helpful LTG Duration Met 1 Manager Security Goal (LTG) Pt will report a 75% improvement in pain and strength ability of biting into a hard food such as an apple by 01/30/21. 12/05/20: Pt reports 0% improvement towards this pain goal. LTG Duration 8 weeks Assessment Summary Assessment Initiated self-myofascial release today with active cervical rotation and pt performs better sitting than hook lying. She will start to perform this at home. Physical Therapy Plan Frequency and Duration Frequency of Treatment 2x/Week Duration of Treatment 8 weeks Plan of Care Start Date 12/05/20 Plan of Care End Date 01/30/21 Therapeutic Interventions Therapeutic Interventions Balance Training,Canalithic Repositioning,Home Exercise Program,Joint Mobilizations, Manual Therapy,Neuromuscular Re-education,Patient/Caregiver Education,Self-Care/Home Management,Soft Tissue Mobilization,Taping, Therapeutic Activities, Therapeutic Exercises Modalities Cold Pack/Ice Massage,Hot Packs Next Visit Focus/Plan Next Note Type Progress Note Next Visit Plan Ongoing manual work including Counterstrain, upper cervical isometric exercise
--- NOTE | 2020-12-25 13:00 | PT.OTN ---
Current Diagnoses Unspecified temporomandibular joint disorder, unspecified side (12/25/20) Physical Therapy Treatment Note PT-OP-A Visit Information Start: 11/07/20 07:26 Freq: Status: Active Protocol: Document 12/25/20 12:18 MB (Rec: 12/25/20 13:00 MB [id number]) Out-Patient Physical Therapy Visit Information Visit Information Visit Type Treatment Note Visit Note Visit Start Time 12:18 Visit Stop Time 12:58 Total Visit Minutes 40 Visit Number 13 Precautions Precautions PTSD, pt states that she is trying to get and PT ed her to tell PT if she gets and she states that she will PT-OP-B Current Condition Start: 11/07/20 07:26 Freq: Status: Active Protocol: Document 11/07/20 09:47 MB (Rec: 11/07/20 10:16 MB [id number]) Current Condition History of Current Condition Onset Date 2011 after work on top left molar and bite was off Current Complaints Left TMJ ache, weakness and sharp pain biting down on hard food History of Current Condition 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 Pt's spouse is active and has had long deployment. Pt has a history of PTSD with sleep paralysis occ at night, bruxism, pancreatic issues and pt saw polisher aluminum to assist with her with diet. Pt reports ringing in both ears 1-2x/every two weeks. She denies headache, dizziness and neck pain. She does report a history of low BP that made her feel off. She is concerned about flattening of the left TMJ per previous x- ray. She reports she had tubes in her ears when she was little d /t drainage. She is trying to get . She has seasonal allergies. Pt had wisdom teeth out in October 2019. She was given a bite guard and then she got a crown and then she did not use it anymore. Pt reports that it is easy and comfortable to close with her back teeth together, pt feels her back teeth touching when clicking them together. It feels like pressure is on the middle teeth and not on the back molars when she taps her teeth together. In the morning , she feels feels stiff and arthritic type pain in her left TMJ area. If she bites in an apple or nut, she feels sharp pain in the left TMJ area. She cannot bite down hard with her teeth. It feels like her jaw might break and she has the sharp pain and so she avoids it. Pt feels her body tightening up at night, including her arms. She liked craniosacral therapy in the past. She felt relief with it. She also felt relief with massage therapy. It is like a valve opening up and more mobility in her left TMJ. Pt sleeps on her back with one pillow under her head. She occ wakes up on her stomach with her head turned to the left. She has a memory foam mattress. She likes it. She gets cold at night. She got a weighted blanket. She gets up 1-2x/night to urinate. She denies apnea and walking in her sleep. She has 2 dogs and a cat in the room. The cat occ gets on the bed. The cat occ inhibits movement. Treatment Goals Patient/Caregiver Goals To bite down hard without pain , waking up with less jaw pain and tension, learning techniques that will help her in the future. PT-OP-C Subjective Start: 11/07/20 07:26 Freq: Status: Active Protocol: Document 12/25/20 12:18 MB (Rec: 12/25/20 13:00 MB [id number]) OP-PT Subjective Patient Comments Patient Comments Pt states that she did two weeks without caffeine (coffee ) and then drank her first cup this morning and noticed a huge affect with her nervous system. She does not think that it is worth it. PT-OP-J Posture/Palpation/Skin Start: 11/07/20 07:26 Freq: Status: Active Protocol: Document 11/07/20 09:47 MB (Rec: 11/07/20 16:05 MB [id number]) Posture Evaluation Comments Posture Comments Standing posture: Pt states with head in mild SB posture that she corrects and it changes. She states this is a long-standing posture of hers. She presents with forward head, rounded shoulders, decreased cervical lordosis, Dowager's hump, decreased thoracic kyphosis, anterior tilt pelvis, mid clavicular protrusion B, right scapula lower than the left, right iliac crest higher than the left. Skin Assessment Other Assessments Skin Assessment Comments Increased tension right greater than left SCM, left temporalis PT-OP-K Range of Motion Start: 04/07/21 07:26 Freq: Status: Active Protocol: Document 11/07/20 09:47 MB (Rec: 11/07/20 16:05 MB [id number]) Cervical Spine Range of Motion Cervical Spine Active Testing Position Standing Flexion 35 Extension 40 Rotation Left 50 Rotation Right 50 Lateral Flexion Left 35 Lateral Flexion Right 25 TMJ Range of Motion Comments Comments Mild deviation to the left with mandiublar depression. 32 mm depression today PT-OP-Q Treatments Start: 11/07/20 07:26 Freq: Status: Active Protocol: Document 12/25/20 12:18 MB (Rec: 12/25/20 13:00 MB [id number]) Manual Therapy Treatment Other Other Manual Treatments Pt agrees to Counterstrain to assess and treat fascial tension and she presents with tension in the following fascial systems: costocartilage, sinuvertebral and DPR. PT treats stacks in these systems and she responds well to treatment and fascial tension in the ribs is much better. Also treated left CDT. PT-OP-T Assessment and Plan Start: 11/07/20 07:26 Freq: Status: Active Protocol: Document 12/25/20 12:18 MB (Rec: 12/25/20 13:00 MB [id number]) Physical Therapy Assessment Rehab Potential Rehabilitation Potential Good Evaluation Complexity Number of Personal Factors/Comorbidities 1-2 Number of Body Systems Impaired 1-2 Clinical Presentation at Evaluation Evolving Impairments Impairments Pain,Posture,ROM,Soft Tissue Mobility Goals 3 Drill Press Tender Goal (LTG) Pt will perform progressive HEP with I including postural, relaxation, flexibility, and self-myofascial exercises to improve pain, posture and function by 01/30/21. 12/05/20: Pt is racquet ball massage, use of back housekeeper home, pool noodle progression, Buteyko breathing exercises, SCM MWM, core progression, pelvic realignment exercises LTG Duration 8 weeks 2 Drill Press Tender Goal (LTG) Pt will report an overall 75% improvement in left TMJ symptoms with sleeping and waking to improve quality of sleep and life by 01/30/21. 12/05/20: Pt reports an 85-90% improvement TMJ symptoms with sleeping and waking with breathing exercises being the most helpful LTG Duration Met 1 Alf Goal (LTG) Pt will report a 75% improvement in pain and strength ability of biting into a hard food such as an apple by 01/30/21. 12/05/20: Pt reports 0% improvement towards this pain goal. LTG Duration 8 weeks Assessment Summary Assessment Pt feels that she has all the tools she needs now for taking care of herself. She feels Counterstrain is helpful and so performed again today and she tolerates well. Her costal cartilage and rib mobility is better after treatment and pt reports that she will restart pool noodle exercises at home to help with thoracic mobility. Physical Therapy Plan Frequency and Duration Frequency of Treatment 2x/Week Duration of Treatment 8 weeks Plan of Care Start Date 12/05/20 Plan of Care End Date 01/30/21 Therapeutic Interventions Therapeutic Interventions Balance Training,Canalithic Repositioning,Home Exercise Program,Joint Mobilizations, Manual Therapy,Neuromuscular Re-education,Patient/Caregiver Education,Self-Care/Home Management,Soft Tissue Mobilization,Taping, Therapeutic Activities, Therapeutic Exercises Modalities Cold Pack/Ice Massage,Hot Packs Next Visit Focus/Plan Next Note Type Progress Note Next Visit Plan Con't manual work including Counterstrain, upper cervical isometric exercise
--- NOTE | 2020-12-27 10:56 | PT.OTN ---
Current Diagnoses Unspecified temporomandibular joint disorder, unspecified side (12/27/20) Physical Therapy Treatment Note PT-OP-A Visit Information Start: 11/07/20 07:26 Freq: Status: Active Protocol: Document 12/27/20 09:51 MB (Rec: 12/27/20 10:45 MB [id number]) Out-Patient Physical Therapy Visit Information Visit Information Visit Type Treatment Note Visit Start Time 09:51 Visit Stop Time 10:45 Total Visit Minutes 54 Visit Number 14 Precautions Precautions PTSD, pt states that she is trying to get and PT ed her to tell PT if she gets and she states that she will PT-OP-B Current Condition Start: 11/07/20 07:26 Freq: Status: Active Protocol: Document 11/07/20 09:47 MB (Rec: 11/07/20 10:16 MB [id number]) Current Condition History of Current Condition Onset Date 2011 after work on top left molar and bite was off Current Complaints Left TMJ ache, weakness and sharp pain biting down on hard food History of Current Condition 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 Pt's spouse is active and has had long deployment. Pt has a history of PTSD with sleep paralysis occ at night, bruxism, pancreatic issues and pt saw interventional radiologist to assist with her with diet. Pt reports ringing in both ears 1-2x/every two weeks. She denies headache, dizziness and neck pain. She does report a history of low BP that made her feel off. She is concerned about flattening of the left TMJ per previous x- ray. She reports she had tubes in her ears when she was little d /t drainage. She is trying to get . She has seasonal allergies. Pt had wisdom teeth out in October 2019. She was given a bite guard and then she got a crown and then she did not use it anymore. Pt reports that it is easy and comfortable to close with her back teeth together, pt feels her back teeth touching when clicking them together. It feels like pressure is on the middle teeth and not on the back molars when she taps her teeth together. In the morning , she feels feels stiff and arthritic type pain in her left TMJ area. If she bites in an apple or nut, she feels sharp pain in the left TMJ area. She cannot bite down hard with her teeth. It feels like her jaw might break and she has the sharp pain and so she avoids it. Pt feels her body tightening up at night, including her arms. She liked craniosacral therapy in the past. She felt relief with it. She also felt relief with massage therapy. It is like a valve opening up and more mobility in her left TMJ. Pt sleeps on her back with one pillow under her head. She occ wakes up on her stomach with her head turned to the left. She has a memory foam mattress. She likes it. She gets cold at night. She got a weighted blanket. She gets up 1-2x/night to urinate. She denies apnea and walking in her sleep. She has 2 dogs and a cat in the room. The cat occ gets on the bed. The cat occ inhibits movement. Treatment Goals Patient/Caregiver Goals To bite down hard without pain , waking up with less jaw pain and tension, learning techniques that will help her in the future. PT-OP-C Subjective Start: 11/07/20 07:26 Freq: Status: Active Protocol: Document 12/27/20 09:51 MB (Rec: 12/27/20 10:45 MB [id number]) OP-PT Subjective Patient Comments Patient Comments Pt has been doing pool noodle exercises and pect stretch PT-OP-J Posture/Palpation/Skin Start: 11/07/20 07:26 Freq: Status: Active Protocol: Document 11/07/20 09:47 MB (Rec: 11/07/20 16:05 MB [id number]) Posture Evaluation Comments Posture Comments Standing posture: Pt states with head in mild SB posture that she corrects and it changes. She states this is a long-standing posture of hers. She presents with forward head, rounded shoulders, decreased cervical lordosis, Dowager's hump, decreased thoracic kyphosis, anterior tilt pelvis, mid clavicular protrusion B, right scapula lower than the left, right iliac crest higher than the left. Skin Assessment Other Assessments Skin Assessment Comments Increased tension right greater than left SCM, left temporalis PT-OP-K Range of Motion Start: 11/07/20 07:26 Freq: Status: Active Protocol: Document 11/07/20 09:47 MB (Rec: 11/07/20 16:05 MB [id number]) Cervical Spine Range of Motion Cervical Spine Active Testing Position Standing Flexion 35 Extension 40 Rotation Left 50 Rotation Right 50 Lateral Flexion Left 35 Lateral Flexion Right 25 TMJ Range of Motion Comments Comments Mild deviation to the left with mandiublar depression. 32 mm depression today PT-OP-Q Treatments Start: 11/07/20 07:26 Freq: Status: Active Protocol: Document 12/27/20 09:51 MB (Rec: 12/27/20 10:45 MB [id number]) Manual Therapy Treatment Other Other Manual Treatments Pt agrees to Counterstrain to assess and treat fascial tension. PT clears C1 fascial tension of all tight systems. PT thens scans cranial periosteal and pt has most tension in middle and posterior part of scan and PT treats TPs as needed. Pt's C1 mobility is much better after treatment and she states that she does not hear crunchin g in her left TMJ. PT-OP-T Assessment and Plan Start: 11/07/20 07:26 Freq: Status: Active Protocol: Document 12/27/20 09:51 MB (Rec: 12/27/20 10:45 MB [id number]) Physical Therapy Assessment Rehab Potential Rehabilitation Potential Good Evaluation Complexity Number of Personal Factors/Comorbidities 1-2 Number of Body Systems Impaired 1-2 Clinical Presentation at Evaluation Evolving Impairments Impairments Pain,Posture,ROM,Soft Tissue Mobility Goals 3 Strain Technician Goal (LTG) Pt will perform progressive HEP with I including postural, relaxation, flexibility, and self-myofascial exercises to improve pain, posture and function by 01/30/21. 12/05/20: Pt is racquet ball massage, use of back bobbin presser, pool noodle progression, Buteyko breathing exercises, SCM MWM, core progression, pelvic realignment exercises LTG Duration 8 weeks 2 Correction Goal (LTG) Pt will report an overall 75% improvement in left TMJ symptoms with sleeping and waking to improve quality of sleep and life by 01/30/21. 12/05/20: Pt reports an 85-90% improvement TMJ symptoms with sleeping and waking with breathing exercises being the most helpful LTG Duration Met 1 Strain Technician Goal (LTG) Pt will report a 75% improvement in pain and strength ability of biting into a hard food such as an apple by 01/30/21. 12/05/20: Pt reports 0% improvement towards this pain goal. LTG Duration 8 weeks Assessment Summary Assessment See manual comments today for assessment after Counterstrain . Pt's C1 area moves much better passively and she denies crunching in her left TMJ after treatment. Con't PT and Counterstrain. Physical Therapy Plan Frequency and Duration Frequency of Treatment 2x/Week Duration of Treatment 8 weeks Plan of Care Start Date 12/05/20 Plan of Care End Date 01/30/21 Therapeutic Interventions Therapeutic Interventions Balance Training,Canalithic Repositioning,Home Exercise Program,Joint Mobilizations, Manual Therapy,Neuromuscular Re-education,Patient/Caregiver Education,Self-Care/Home Management,Soft Tissue Mobilization,Taping, Therapeutic Activities, Therapeutic Exercises Modalities Cold Pack/Ice Massage,Hot Packs Next Visit Focus/Plan Next Note Type Progress Note Next Visit Plan Con't manual work including Counterstrain, upper cervical isometric exercise
--- NOTE | 2021-01-01 11:13 | PT.OTN ---
Current Diagnoses Unspecified temporomandibular joint disorder, unspecified side (01/01/21) Physical Therapy Treatment Note PT-OP-A Visit Information Start: 11/07/20 07:26 Freq: Status: Active Protocol: Document 01/01/21 10:33 MB (Rec: 01/01/21 10:49 MB [id number]) Out-Patient Physical Therapy Visit Information Visit Information Visit Type Treatment Note Visit Start Time 10:33 Visit Stop Time 11:13 Total Visit Minutes 40 Visit Number 15 Precautions Precautions PTSD, pt states that she is trying to get and PT ed her to tell PT if she gets and she states that she will PT-OP-B Current Condition Start: 11/07/20 07:26 Freq: Status: Active Protocol: Document 11/07/20 09:47 MB (Rec: 11/07/20 10:16 MB [id number]) Current Condition History of Current Condition Onset Date 2011 after work on top left molar and bite was off Current Complaints Left TMJ ache, weakness and sharp pain biting down on hard food History of Current Condition 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 Pt's spouse is active and has had long deployment. Pt has a history of PTSD with sleep paralysis occ at night, bruxism, pancreatic issues and pt saw gospel singer to assist with her with diet. Pt reports ringing in both ears 1-2x/every two weeks. She denies headache, dizziness and neck pain. She does report a history of low BP that made her feel off. She is concerned about flattening of the left TMJ per previous x- ray. She reports she had tubes in her ears when she was little d /t drainage. She is trying to get . She has seasonal allergies. Pt had wisdom teeth out in October 2019. She was given a bite guard and then she got a crown and then she did not use it anymore. Pt reports that it is easy and comfortable to close with her back teeth together, pt feels her back teeth touching when clicking them together. It feels like pressure is on the middle teeth and not on the back molars when she taps her teeth together. In the morning , she feels feels stiff and arthritic type pain in her left TMJ area. If she bites in an apple or nut, she feels sharp pain in the left TMJ area. She cannot bite down hard with her teeth. It feels like her jaw might break and she has the sharp pain and so she avoids it. Pt feels her body tightening up at night, including her arms. She liked craniosacral therapy in the past. She felt relief with it. She also felt relief with massage therapy. It is like a valve opening up and more mobility in her left TMJ. Pt sleeps on her back with one pillow under her head. She occ wakes up on her stomach with her head turned to the left. She has a memory foam mattress. She likes it. She gets cold at night. She got a weighted blanket. She gets up 1-2x/night to urinate. She denies apnea and walking in her sleep. She has 2 dogs and a cat in the room. The cat occ gets on the bed. The cat occ inhibits movement. Treatment Goals Patient/Caregiver Goals To bite down hard without pain , waking up with less jaw pain and tension, learning techniques that will help her in the future. PT-OP-C Subjective Start: 11/07/20 07:26 Freq: Status: Active Protocol: Document 01/01/21 10:33 MB (Rec: 01/01/21 10:49 MB [id number]) OP-PT Subjective Patient Comments Patient Comments Pt did a lot of yard work over the weekend. She has not tried biting into an apple as she did not get any yet. PT-OP-J Posture/Palpation/Skin Start: 11/07/20 07:26 Freq: Status: Active Protocol: Document 11/07/20 09:47 MB (Rec: 11/07/20 16:05 MB [id number]) Posture Evaluation Comments Posture Comments Standing posture: Pt states with head in mild SB posture that she corrects and it changes. She states this is a long-standing posture of hers. She presents with forward head, rounded shoulders, decreased cervical lordosis, Dowager's hump, decreased thoracic kyphosis, anterior tilt pelvis, mid clavicular protrusion B, right scapula lower than the left, right iliac crest higher than the left. Skin Assessment Other Assessments Skin Assessment Comments Increased tension right greater than left SCM, left temporalis PT-OP-K Range of Motion Start: 11/07/20 07:26 Freq: Status: Active Protocol: Document 11/07/20 09:47 MB (Rec: 11/07/20 16:05 MB [id number]) Cervical Spine Range of Motion Cervical Spine Active Testing Position Standing Flexion 35 Extension 40 Rotation Left 50 Rotation Right 50 Lateral Flexion Left 35 Lateral Flexion Right 25 TMJ Range of Motion Comments Comments Mild deviation to the left with mandiublar depression. 32 mm depression today PT-OP-Q Treatments Start: 11/07/20 07:26 Freq: Status: Active Protocol: Document 01/01/21 10:33 MB (Rec: 01/01/21 10:49 MB [id number]) Manual Therapy Treatment Other Other Manual Treatments MWM B SCM and scalenes with PT performing TrP pressure and pt performing active cervical rotation. B masseter positional release, positional release B temporalis PT-OP-T Assessment and Plan Start: 11/07/20 07:26 Freq: Status: Active Protocol: Document 01/01/21 10:33 MB (Rec: 01/01/21 10:49 MB [id number]) Physical Therapy Assessment Rehab Potential Rehabilitation Potential Good Evaluation Complexity Number of Personal Factors/Comorbidities 1-2 Number of Body Systems Impaired 1-2 Clinical Presentation at Evaluation Evolving Impairments Impairments Pain,Posture,ROM,Soft Tissue Mobility Goals 3 Intermediate Goal (LTG) Pt will perform progressive HEP with I including postural, relaxation, flexibility, and self-myofascial exercises to improve pain, posture and function by 01/30/21. 12/05/20: Pt is racquet ball massage, use of back individualized education plan aide, pool noodle progression, Buteyko breathing exercises, SCM MWM, core progression, pelvic realignment exercises LTG Duration 8 weeks 2 Head Of Visual Merchandising Goal (LTG) Pt will report an overall 75% improvement in left TMJ symptoms with sleeping and waking to improve quality of sleep and life by 01/30/21. 12/05/20: Pt reports an 85-90% improvement TMJ symptoms with sleeping and waking with breathing exercises being the most helpful LTG Duration Met 1 Head Of Visual Merchandising Goal (LTG) Pt will report a 75% improvement in pain and strength ability of biting into a hard food such as an apple by 01/30/21. 12/05/20: Pt reports 0% improvement towards this pain goal. LTG Duration 8 weeks Assessment Summary Assessment Appointments are decreasing to 1x/wk and that is appropriate as PT is providing manual work/Counterstrain and pt is con't HEP and self-care as educated at home. Con't up to 4 more treatments at this point. Physical Therapy Plan Frequency and Duration Frequency of Treatment 2x/Week Duration of Treatment 8 weeks Plan of Care Start Date 12/05/20 Plan of Care End Date 01/30/21 Therapeutic Interventions Therapeutic Interventions Balance Training,Canalithic Repositioning,Home Exercise Program,Joint Mobilizations, Manual Therapy,Neuromuscular Re-education,Patient/Caregiver Education,Self-Care/Home Management,Soft Tissue Mobilization,Taping, Therapeutic Activities, Therapeutic Exercises Modalities Cold Pack/Ice Massage,Hot Packs Next Visit Focus/Plan Next Note Type Progress Note Next Visit Plan Con't manual work including Counterstrain, upper cervical isometric exercise
--- NOTE | 2021-01-08 10:32 | PT.OTN ---
Current Diagnoses Unspecified temporomandibular joint disorder, unspecified side (01/08/21) Physical Therapy Treatment Note PT-OP-A Visit Information Start: 11/07/20 07:26 Freq: Status: Active Protocol: Document 01/08/21 09:47 MB (Rec: 01/08/21 10:12 MB [id number]) Out-Patient Physical Therapy Visit Information Visit Information Visit Type Treatment Note Visit Start Time 09:47 Visit Stop Time 10:30 Total Visit Minutes 43 Visit Number 16 Precautions Precautions PTSD, pt states that she is trying to get and PT ed her to tell PT if she gets and she states that she will PT-OP-B Current Condition Start: 11/07/20 07:26 Freq: Status: Active Protocol: Document 11/07/20 09:47 MB (Rec: 11/07/20 10:16 MB [id number]) Current Condition History of Current Condition Onset Date 2011 after work on top left molar and bite was off Current Complaints Left TMJ ache, weakness and sharp pain biting down on hard food History of Current Condition 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 Pt's spouse is active and has had long deployment. Pt has a history of PTSD with sleep paralysis occ at night, bruxism, pancreatic issues and pt saw machine adjuster leader to assist with her with diet. Pt reports ringing in both ears 1-2x/every two weeks. She denies headache, dizziness and neck pain. She does report a history of low BP that made her feel off. She is concerned about flattening of the left TMJ per previous x- ray. She reports she had tubes in her ears when she was little d /t drainage. She is trying to get . She has seasonal allergies. Pt had wisdom teeth out in October 2019. She was given a bite guard and then she got a crown and then she did not use it anymore. Pt reports that it is easy and comfortable to close with her back teeth together, pt feels her back teeth touching when clicking them together. It feels like pressure is on the middle teeth and not on the back molars when she taps her teeth together. In the morning , she feels feels stiff and arthritic type pain in her left TMJ area. If she bites in an apple or nut, she feels sharp pain in the left TMJ area. She cannot bite down hard with her teeth. It feels like her jaw might break and she has the sharp pain and so she avoids it. Pt feels her body tightening up at night, including her arms. She liked craniosacral therapy in the past. She felt relief with it. She also felt relief with massage therapy. It is like a valve opening up and more mobility in her left TMJ. Pt sleeps on her back with one pillow under her head. She occ wakes up on her stomach with her head turned to the left. She has a memory foam mattress. She likes it. She gets cold at night. She got a weighted blanket. She gets up 1-2x/night to urinate. She denies apnea and walking in her sleep. She has 2 dogs and a cat in the room. The cat occ gets on the bed. The cat occ inhibits movement. Treatment Goals Patient/Caregiver Goals To bite down hard without pain , waking up with less jaw pain and tension, learning techniques that will help her in the future. PT-OP-C Subjective Start: 11/07/20 07:26 Freq: Status: Active Protocol: Document 01/08/21 09:47 MB (Rec: 01/08/21 10:12 MB [id number]) OP-PT Subjective Patient Comments Patient Comments Pt con't to do a lot of heavy work and has to keep a good note on her jaw tension. Her can come to appointment on January 22. PT-OP-J Posture/Palpation/Skin Start: 11/07/20 07:26 Freq: Status: Active Protocol: Document 11/07/20 09:47 MB (Rec: 11/07/20 16:05 MB [id number]) Posture Evaluation Comments Posture Comments Standing posture: Pt states with head in mild SB posture that she corrects and it changes. She states this is a long-standing posture of hers. She presents with forward head, rounded shoulders, decreased cervical lordosis, Dowager's hump, decreased thoracic kyphosis, anterior tilt pelvis, mid clavicular protrusion B, right scapula lower than the left, right iliac crest higher than the left. Skin Assessment Other Assessments Skin Assessment Comments Increased tension right greater than left SCM, left temporalis PT-OP-K Range of Motion Start: 11/07/20 07:26 Freq: Status: Active Protocol: Document 11/07/20 09:47 MB (Rec: 11/07/20 16:05 MB [id number]) Cervical Spine Range of Motion Cervical Spine Active Testing Position Standing Flexion 35 Extension 40 Rotation Left 50 Rotation Right 50 Lateral Flexion Left 35 Lateral Flexion Right 25 TMJ Range of Motion Comments Comments Mild deviation to the left with mandiublar depression. 32 mm depression today PT-OP-Q Treatments Start: 11/07/20 07:26 Freq: Status: Active Protocol: Document 01/08/21 09:47 MB (Rec: 01/08/21 10:12 MB [id number]) Manual Therapy Treatment Other Other Manual Treatments MWM B middle scalene, SCM and upper traps, positional release B masseter internal and external Self-Care/Home Management Treatment Education Other Education Provided and ed pt in use of Buteyko tape PT-OP-T Assessment and Plan Start: 11/07/20 07:26 Freq: Status: Active Protocol: Document 01/08/21 09:47 MB (Rec: 01/08/21 10:12 MB [id number]) Physical Therapy Assessment Rehab Potential Rehabilitation Potential Good Evaluation Complexity Number of Personal Factors/Comorbidities 1-2 Number of Body Systems Impaired 1-2 Clinical Presentation at Evaluation Evolving Impairments Impairments Pain,Posture,ROM,Soft Tissue Mobility Goals 3 Intermediate Goal (LTG) Pt will perform progressive HEP with I including postural, relaxation, flexibility, and self-myofascial exercises to improve pain, posture and function by 01/30/21. 12/05/20: Pt is racquet ball massage, use of back qa tech, pool noodle progression, Buteyko breathing exercises, SCM MWM, core progression, pelvic realignment exercises LTG Duration 8 weeks 2 Dukey Rider Goal (LTG) Pt will report an overall 75% improvement in left TMJ symptoms with sleeping and waking to improve quality of sleep and life by 01/30/21. 12/05/20: Pt reports an 85-90% improvement TMJ symptoms with sleeping and waking with breathing exercises being the most helpful LTG Duration Met 1 Dukey Rider Goal (LTG) Pt will report a 75% improvement in pain and strength ability of biting into a hard food such as an apple by 01/30/21. 12/05/20: Pt reports 0% improvement towards this pain goal. LTG Duration 8 weeks Assessment Summary Assessment Pt con't to respond well to manual work with improvements in TMJ pain and noise after fascial release. Physical Therapy Plan Frequency and Duration Frequency of Treatment 2x/Week Duration of Treatment 8 weeks Plan of Care Start Date 12/05/20 Plan of Care End Date 01/30/21 Therapeutic Interventions Therapeutic Interventions Balance Training,Canalithic Repositioning,Home Exercise Program,Joint Mobilizations, Manual Therapy,Neuromuscular Re-education,Patient/Caregiver Education,Self-Care/Home Management,Soft Tissue Mobilization,Taping, Therapeutic Activities, Therapeutic Exercises Modalities Cold Pack/Ice Massage,Hot Packs Next Visit Focus/Plan Next Note Type Treatment Note Next Visit Plan Con't manual therapy
--- NOTE | 2021-01-16 10:30 | PT.OTN ---
Current Diagnoses Unspecified temporomandibular joint disorder, unspecified side (01/16/21) Physical Therapy Treatment Note PT-OP-A Visit Information Start: 11/07/20 07:26 Freq: Status: Active Protocol: Document 01/16/21 09:48 MB (Rec: 01/16/21 10:18 MB [id number]) Out-Patient Physical Therapy Visit Information Visit Information Visit Type Treatment Note Visit Start Time 09:48 Visit Stop Time 10:26 Total Visit Minutes 38 Visit Number 17 Precautions Precautions PTSD, pt states that she is trying to get and PT ed her to tell PT if she gets and she states that she will PT-OP-B Current Condition Start: 11/07/20 07:26 Freq: Status: Active Protocol: Document 11/07/20 09:47 MB (Rec: 11/07/20 10:16 MB [id number]) Current Condition History of Current Condition Onset Date 2011 after work on top left molar and bite was off Current Complaints Left TMJ ache, weakness and sharp pain biting down on hard food History of Current Condition 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 Pt's spouse is active and has had long deployment. Pt has a history of PTSD with sleep paralysis occ at night, bruxism, pancreatic issues and pt saw deburrer machine to assist with her with diet. Pt reports ringing in both ears 1-2x/every two weeks. She denies headache, dizziness and neck pain. She does report a history of low BP that made her feel off. She is concerned about flattening of the left TMJ per previous x- ray. She reports she had tubes in her ears when she was little d /t drainage. She is trying to get . She has seasonal allergies. Pt had wisdom teeth out in October 2019. She was given a bite guard and then she got a crown and then she did not use it anymore. Pt reports that it is easy and comfortable to close with her back teeth together, pt feels her back teeth touching when clicking them together. It feels like pressure is on the middle teeth and not on the back molars when she taps her teeth together. In the morning , she feels feels stiff and arthritic type pain in her left TMJ area. If she bites in an apple or nut, she feels sharp pain in the left TMJ area. She cannot bite down hard with her teeth. It feels like her jaw might break and she has the sharp pain and so she avoids it. Pt feels her body tightening up at night, including her arms. She liked craniosacral therapy in the past. She felt relief with it. She also felt relief with massage therapy. It is like a valve opening up and more mobility in her left TMJ. Pt sleeps on her back with one pillow under her head. She occ wakes up on her stomach with her head turned to the left. She has a memory foam mattress. She likes it. She gets cold at night. She got a weighted blanket. She gets up 1-2x/night to urinate. She denies apnea and walking in her sleep. She has 2 dogs and a cat in the room. The cat occ gets on the bed. The cat occ inhibits movement. Treatment Goals Patient/Caregiver Goals To bite down hard without pain , waking up with less jaw pain and tension, learning techniques that will help her in the future. PT-OP-C Subjective Start: 11/07/20 07:26 Freq: Status: Active Protocol: Document 01/16/21 09:48 MB (Rec: 01/16/21 10:18 MB [id number]) OP-PT Subjective Patient Comments Patient Comments Pt states that she pretty much feels that her goals have been met. The only thing is the biting into a hard foot like a nut. She is reaching self-management phase and would like one more appointment for instruction in masseter release. She is going to get a joint supplement to see if it helps. PT-OP-J Posture/Palpation/Skin Start: 11/07/20 07:26 Freq: Status: Active Protocol: Document 11/07/20 09:47 MB (Rec: 11/07/20 16:05 MB [id number]) Posture Evaluation Comments Posture Comments Standing posture: Pt states with head in mild SB posture that she corrects and it changes. She states this is a long-standing posture of hers. She presents with forward head, rounded shoulders, decreased cervical lordosis, Dowager's hump, decreased thoracic kyphosis, anterior tilt pelvis, mid clavicular protrusion B, right scapula lower than the left, right iliac crest higher than the left. Skin Assessment Other Assessments Skin Assessment Comments Increased tension right greater than left SCM, left temporalis PT-OP-K Range of Motion Start: 11/07/20 07:26 Freq: Status: Active Protocol: Document 11/07/20 09:47 MB (Rec: 11/07/20 16:05 MB [id number]) Cervical Spine Range of Motion Cervical Spine Active Testing Position Standing Flexion 35 Extension 40 Rotation Left 50 Rotation Right 50 Lateral Flexion Left 35 Lateral Flexion Right 25 TMJ Range of Motion Comments Comments Mild deviation to the left with mandiublar depression. 32 mm depression today PT-OP-Q Treatments Start: 11/07/20 07:26 Freq: Status: Active Protocol: Document 01/16/21 09:48 MB (Rec: 01/16/21 10:18 MB [id number]) Manual Therapy Treatment Other Other Manual Treatments Pt agrees to Countestrain to assess and treat fascial tension. She presents with tension in the following fascial systems: ligamentum flavum, standard lymphatic venous and dural and PT treats stacks in these systems and pt responds well to treatment. Cervical area treatments for LF and LV systems PT-OP-T Assessment and Plan Start: 11/07/20 07:26 Freq: Status: Active Protocol: Document 01/16/21 09:48 MB (Rec: 01/16/21 10:18 MB [id number]) Physical Therapy Assessment Rehab Potential Rehabilitation Potential Good Evaluation Complexity Number of Personal Factors/Comorbidities 1-2 Number of Body Systems Impaired 1-2 Clinical Presentation at Evaluation Evolving Impairments Impairments Pain,Posture,ROM,Soft Tissue Mobility Goals 3 Halfway Goal (LTG) Pt will perform progressive HEP with I including postural, relaxation, flexibility, and self-myofascial exercises to improve pain, posture and function by 01/30/21. 01/16/21: Pt is racquet ball massage, use of back histopathologist, pool noodle progression, Buteyko breathing exercises, SCM MWM, core progression, pelvic realignment exercises LTG Duration Met 2 Halfway Goal (LTG) Pt will report an overall 75% improvement in left TMJ symptoms with sleeping and waking to improve quality of sleep and life by 01/30/21. 12/05/20: Pt reports an 85-90% improvement TMJ symptoms with sleeping and waking with breathing exercises being the most helpful LTG Duration Met 1 Halfway Goal (LTG) Pt will report a 75% improvement in pain and strength ability of biting into a hard food such as an apple by 01/30/21. 01/16/21: Pt reports 20% improvement towards this pain goal. LTG Duration Minimal improvement Assessment Summary Assessment Counterstrain today. Addressed goals. Pt's to come to last appointment to teach him masseter massage and then anticipate d/c. Physical Therapy Plan Frequency and Duration Frequency of Treatment 2x/Week Duration of Treatment 8 weeks Plan of Care Start Date 12/05/20 Plan of Care End Date 01/30/21 Therapeutic Interventions Therapeutic Interventions Balance Training,Canalithic Repositioning,Home Exercise Program,Joint Mobilizations, Manual Therapy,Neuromuscular Re-education,Patient/Caregiver Education,Self-Care/Home Management,Soft Tissue Mobilization,Taping, Therapeutic Activities, Therapeutic Exercises Modalities Cold Pack/Ice Massage,Hot Packs Next Visit Focus/Plan Next Note Type Discharge Summary Next Visit Plan to come to last appointment to learn masseter massage
--- NOTE | 2021-01-22 13:27 | PT-OP ANOTE ---
Pt does not show for appointment. PT calls pt and leaves message and communicates other openings and when her next scheduled appointment is.
--- NOTE | 2021-01-23 09:04 | PT.OTN ---
Current Diagnoses Unspecified temporomandibular joint disorder, unspecified side (01/23/21) Physical Therapy Treatment Note PT-OP-A Visit Information Start: 11/07/20 07:26 Freq: Status: Active Protocol: Document 01/23/21 08:17 MB (Rec: 01/23/21 09:03 MB [id number]) Out-Patient Physical Therapy Visit Information Visit Information Visit Type Treatment Note Visit Start Time 08:17 Visit Stop Time 09:00 Total Visit Minutes 43 Visit Number 18 Precautions Precautions PTSD, pt states that she is trying to get and PT ed her to tell PT if she gets and she states that she will PT-OP-B Current Condition Start: 11/07/20 07:26 Freq: Status: Active Protocol: Document 11/07/20 09:47 MB (Rec: 11/07/20 10:16 MB [id number]) Current Condition History of Current Condition Onset Date 2011 after work on top left molar and bite was off Current Complaints Left TMJ ache, weakness and sharp pain biting down on hard food History of Current Condition 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 Pt's spouse is active and has had long deployment. Pt has a history of PTSD with sleep paralysis occ at night, bruxism, pancreatic issues and pt saw catering director to assist with her with diet. Pt reports ringing in both ears 1-2x/every two weeks. She denies headache, dizziness and neck pain. She does report a history of low BP that made her feel off. She is concerned about flattening of the left TMJ per previous x- ray. She reports she had tubes in her ears when she was little d /t drainage. She is trying to get . She has seasonal allergies. Pt had wisdom teeth out in October 2019. She was given a bite guard and then she got a crown and then she did not use it anymore. Pt reports that it is easy and comfortable to close with her back teeth together, pt feels her back teeth touching when clicking them together. It feels like pressure is on the middle teeth and not on the back molars when she taps her teeth together. In the morning , she feels feels stiff and arthritic type pain in her left TMJ area. If she bites in an apple or nut, she feels sharp pain in the left TMJ area. She cannot bite down hard with her teeth. It feels like her jaw might break and she has the sharp pain and so she avoids it. Pt feels her body tightening up at night, including her arms. She liked craniosacral therapy in the past. She felt relief with it. She also felt relief with massage therapy. It is like a valve opening up and more mobility in her left TMJ. Pt sleeps on her back with one pillow under her head. She occ wakes up on her stomach with her head turned to the left. She has a memory foam mattress. She likes it. She gets cold at night. She got a weighted blanket. She gets up 1-2x/night to urinate. She denies apnea and walking in her sleep. She has 2 dogs and a cat in the room. The cat occ gets on the bed. The cat occ inhibits movement. Treatment Goals Patient/Caregiver Goals To bite down hard without pain , waking up with less jaw pain and tension, learning techniques that will help her in the future. PT-OP-C Subjective Start: 11/07/20 07:26 Freq: Status: Active Protocol: Document 01/23/21 08:17 MB (Rec: 01/23/21 09:03 MB [id number]) OP-PT Subjective Patient Comments Patient Comments Pt's , Arsen, arrives for treatment to be educated in masseter release. PT-OP-J Posture/Palpation/Skin Start: 11/07/20 07:26 Freq: Status: Active Protocol: Document 11/07/20 09:47 MB (Rec: 11/07/20 16:05 MB [id number]) Posture Evaluation Comments Posture Comments Standing posture: Pt states with head in mild SB posture that she corrects and it changes. She states this is a long-standing posture of hers. She presents with forward head, rounded shoulders, decreased cervical lordosis, Dowager's hump, decreased thoracic kyphosis, anterior tilt pelvis, mid clavicular protrusion B, right scapula lower than the left, right iliac crest higher than the left. Skin Assessment Other Assessments Skin Assessment Comments Increased tension right greater than left SCM, left temporalis PT-OP-K Range of Motion Start: 11/07/20 07:26 Freq: Status: Active Protocol: Document 11/07/20 09:47 MB (Rec: 11/07/20 16:05 MB [id number]) Cervical Spine Range of Motion Cervical Spine Active Testing Position Standing Flexion 35 Extension 40 Rotation Left 50 Rotation Right 50 Lateral Flexion Left 35 Lateral Flexion Right 25 TMJ Range of Motion Comments Comments Mild deviation to the left with mandiublar depression. 32 mm depression today PT-OP-Q Treatments Start: 11/07/20 07:26 Freq: Status: Active Protocol: Document 01/23/21 08:17 MB (Rec: 01/23/21 09:03 MB [id number]) Manual Therapy Treatment Other Other Manual Treatments Positional release right masseter and PT performs and then ed pt's , Arsen Self-Care/Home Management Treatment Education Other Education Ed pt's : B masseter release and pt and respond well. PT-OP-T Assessment and Plan Start: 11/07/20 07:26 Freq: Status: Active Protocol: Document 01/23/21 08:17 MB (Rec: 01/23/21 09:03 MB [id number]) Physical Therapy Assessment Rehab Potential Rehabilitation Potential Good Evaluation Complexity Number of Personal Factors/Comorbidities 1-2 Number of Body Systems Impaired 1-2 Clinical Presentation at Evaluation Evolving Impairments Impairments Pain,Posture,ROM,Soft Tissue Mobility Goals 3 Pre Press Operator Goal (LTG) Pt will perform progressive HEP with I including postural, relaxation, flexibility, and self-myofascial exercises to improve pain, posture and function by 01/30/21. 01/16/21: Pt is racquet ball massage, use of back tool designer, pool noodle progression, Buteyko breathing exercises, SCM MWM, core progression, pelvic realignment exercises LTG Duration Met 2 Mcc Goal (LTG) Pt will report an overall 75% improvement in left TMJ symptoms with sleeping and waking to improve quality of sleep and life by 01/30/21. 12/05/20: Pt reports an 85-90% improvement TMJ symptoms with sleeping and waking with breathing exercises being the most helpful LTG Duration Met 1 Mcc Goal (LTG) Pt will report a 75% improvement in pain and strength ability of biting into a hard food such as an apple by 01/30/21. 01/16/21: Pt reports 20% improvement towards this pain goal. LTG Duration Minimal improvement Assessment Summary Assessment Initiated training for pt and for masseter release. He performs well. Physical Therapy Plan Frequency and Duration Frequency of Treatment 2x/Week Duration of Treatment 8 weeks Plan of Care Start Date 12/05/20 Plan of Care End Date 01/30/21 Therapeutic Interventions Therapeutic Interventions Balance Training,Canalithic Repositioning,Home Exercise Program,Joint Mobilizations, Manual Therapy,Neuromuscular Re-education,Patient/Caregiver Education,Self-Care/Home Management,Soft Tissue Mobilization,Taping, Therapeutic Activities, Therapeutic Exercises Modalities Cold Pack/Ice Massage,Hot Packs Next Visit Focus/Plan Next Note Type Treatment Note Next Visit Plan Review education to pt and for masseter massage, Buteyko breathing progression training and prepare for d/c in two treatments
--- NOTE | 2021-01-25 14:32 | PT.OTN ---
Current Diagnoses Unspecified temporomandibular joint disorder, unspecified side (01/25/21) Physical Therapy Treatment Note PT-OP-A Visit Information Start: 11/07/20 07:26 Freq: Status: Active Protocol: Document 01/25/21 13:47 MB (Rec: 01/25/21 14:24 MB [id number]) Out-Patient Physical Therapy Visit Information Visit Information Visit Type Treatment Note Visit Start Time 13:47 Visit Stop Time 14:30 Total Visit Minutes 43 Visit Number 19 Precautions Precautions PTSD, pt states that she is trying to get and PT ed her to tell PT if she gets and she states that she will PT-OP-B Current Condition Start: 11/07/20 07:26 Freq: Status: Active Protocol: Document 11/07/20 09:47 MB (Rec: 11/07/20 10:16 MB [id number]) Current Condition History of Current Condition Onset Date 2011 after work on top left molar and bite was off Current Complaints Left TMJ ache, weakness and sharp pain biting down on hard food History of Current Condition 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 Pt's spouse is active and has had long deployment. Pt has a history of PTSD with sleep paralysis occ at night, bruxism, pancreatic issues and pt saw various exceptionalities teacher to assist with her with diet. Pt reports ringing in both ears 1-2x/every two weeks. She denies headache, dizziness and neck pain. She does report a history of low BP that made her feel off. She is concerned about flattening of the left TMJ per previous x- ray. She reports she had tubes in her ears when she was little d /t drainage. She is trying to get . She has seasonal allergies. Pt had wisdom teeth out in October 2019. She was given a bite guard and then she got a crown and then she did not use it anymore. Pt reports that it is easy and comfortable to close with her back teeth together, pt feels her back teeth touching when clicking them together. It feels like pressure is on the middle teeth and not on the back molars when she taps her teeth together. In the morning , she feels feels stiff and arthritic type pain in her left TMJ area. If she bites in an apple or nut, she feels sharp pain in the left TMJ area. She cannot bite down hard with her teeth. It feels like her jaw might break and she has the sharp pain and so she avoids it. Pt feels her body tightening up at night, including her arms. She liked craniosacral therapy in the past. She felt relief with it. She also felt relief with massage therapy. It is like a valve opening up and more mobility in her left TMJ. Pt sleeps on her back with one pillow under her head. She occ wakes up on her stomach with her head turned to the left. She has a memory foam mattress. She likes it. She gets cold at night. She got a weighted blanket. She gets up 1-2x/night to urinate. She denies apnea and walking in her sleep. She has 2 dogs and a cat in the room. The cat occ gets on the bed. The cat occ inhibits movement. Treatment Goals Patient/Caregiver Goals To bite down hard without pain , waking up with less jaw pain and tension, learning techniques that will help her in the future. PT-OP-C Subjective Start: 11/07/20 07:26 Freq: Status: Active Protocol: Document 01/25/21 13:47 MB (Rec: 01/25/21 14:24 MB [id number]) OP-PT Subjective Patient Comments Patient Comments Pt states that she did not sleep well last night. It was a full seay and she slept better. PT-OP-J Posture/Palpation/Skin Start: 11/07/20 07:26 Freq: Status: Active Protocol: Document 11/07/20 09:47 MB (Rec: 11/07/20 16:05 MB [id number]) Posture Evaluation Comments Posture Comments Standing posture: Pt states with head in mild SB posture that she corrects and it changes. She states this is a long-standing posture of hers. She presents with forward head, rounded shoulders, decreased cervical lordosis, Dowager's hump, decreased thoracic kyphosis, anterior tilt pelvis, mid clavicular protrusion B, right scapula lower than the left, right iliac crest higher than the left. Skin Assessment Other Assessments Skin Assessment Comments Increased tension right greater than left SCM, left temporalis PT-OP-K Range of Motion Start: 11/07/20 07:26 Freq: Status: Active Protocol: Document 11/07/20 09:47 MB (Rec: 11/07/20 16:05 MB [id number]) Cervical Spine Range of Motion Cervical Spine Active Testing Position Standing Flexion 35 Extension 40 Rotation Left 50 Rotation Right 50 Lateral Flexion Left 35 Lateral Flexion Right 25 TMJ Range of Motion Comments Comments Mild deviation to the left with mandiublar depression. 32 mm depression today PT-OP-Q Treatments Start: 11/07/20 07:26 Freq: Status: Active Protocol: Document 01/25/21 13:47 MB (Rec: 01/25/21 14:24 MB [id number]) Manual Therapy Treatment Other Other Manual Treatments PT performs B SCM MWM release with PT performing trigger point pressure and pt performing active cervical rotation away. PT initiates masseter STM left and then re- ed pt's for review. Pt did perform active opening and closing of mouth and this helped release today. Self-Care/Home Management Treatment Education Other Education Ed pt 's : B masseter release reviewed again today. PT also instructs and pt in MWM B SCM with assisting with TrP pressure, performing strumming of muscle to mastoid process and then pt leading rotation away PT-OP-T Assessment and Plan Start: 11/07/20 07:26 Freq: Status: Active Protocol: Document 01/25/21 13:47 MB (Rec: 01/25/21 14:24 MB [id number]) Physical Therapy Assessment Rehab Potential Rehabilitation Potential Good Evaluation Complexity Number of Personal Factors/Comorbidities 1-2 Number of Body Systems Impaired 1-2 Clinical Presentation at Evaluation Evolving Impairments Impairments Pain,Posture,ROM,Soft Tissue Mobility Goals 3 Care Home Goal (LTG) Pt will perform progressive HEP with I including postural, relaxation, flexibility, and self-myofascial exercises to improve pain, posture and function by 01/30/21. 01/16/21: Pt is racquet ball massage, use of back bilingual teacher aide, pool noodle progression, Buteyko breathing exercises, SCM MWM, core progression, pelvic realignment exercises LTG Duration Met 2 Steel Erector Goal (LTG) Pt will report an overall 75% improvement in left TMJ symptoms with sleeping and waking to improve quality of sleep and life by 01/30/21. 12/05/20: Pt reports an 85-90% improvement TMJ symptoms with sleeping and waking with breathing exercises being the most helpful LTG Duration Met 1 Care Home Goal (LTG) Pt will report a 75% improvement in pain and strength ability of biting into a hard food such as an apple by 01/30/21. 01/16/21: Pt reports 20% improvement towards this pain goal. LTG Duration Minimal improvement Assessment Summary Assessment Reviewed masseter massage ed with and pt today and initiated SCM MWM ed and pt and perform well. Will review [place] next treatment date. Physical Therapy Plan Frequency and Duration Frequency of Treatment 2x/Week Duration of Treatment 8 weeks Plan of Care Start Date 12/05/20 Plan of Care End Date 01/30/21 Therapeutic Interventions Therapeutic Interventions Balance Training,Canalithic Repositioning,Home Exercise Program,Joint Mobilizations, Manual Therapy,Neuromuscular Re-education,Patient/Caregiver Education,Self-Care/Home Management,Soft Tissue Mobilization,Taping, Therapeutic Activities, Therapeutic Exercises Modalities Cold Pack/Ice Massage,Hot Packs Next Visit Focus/Plan Next Note Type Treatment Note Next Visit Plan [place] breathing progression training and prepare for d/c in two treatments
--- NOTE | 2021-01-29 11:16 | PT.OTN ---
Current Diagnoses Unspecified temporomandibular joint disorder, unspecified side (01/29/21) Physical Therapy Treatment Note PT-OP-A Visit Information Start: 11/07/20 07:26 Freq: Status: Active Protocol: Document 01/29/21 09:48 MB (Rec: 01/29/21 10:30 MB [id number]) Out-Patient Physical Therapy Visit Information Visit Information Visit Type Treatment Note Visit Start Time 09:48 Visit Stop Time 10:30 Total Visit Minutes 42 Visit Number 20 Precautions Precautions PTSD, pt states that she is trying to get and PT ed her to tell PT if she gets and she states that she will PT-OP-B Current Condition Start: 11/07/20 07:26 Freq: Status: Active Protocol: Document 11/07/20 09:47 MB (Rec: 11/07/20 10:16 MB [id number]) Current Condition History of Current Condition Onset Date 2011 after work on top left molar and bite was off Current Complaints Left TMJ ache, weakness and sharp pain biting down on hard food History of Current Condition 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 Pt's spouse is active and has had long deployment. Pt has a history of PTSD with sleep paralysis occ at night, bruxism, pancreatic issues and pt saw vacuum drier tender to assist with her with diet. Pt reports ringing in both ears 1-2x/every two weeks. She denies headache, dizziness and neck pain. She does report a history of low BP that made her feel off. She is concerned about flattening of the left TMJ per previous x- ray. She reports she had tubes in her ears when she was little d /t drainage. She is trying to get . She has seasonal allergies. Pt had wisdom teeth out in October 2019. She was given a bite guard and then she got a crown and then she did not use it anymore. Pt reports that it is easy and comfortable to close with her back teeth together, pt feels her back teeth touching when clicking them together. It feels like pressure is on the middle teeth and not on the back molars when she taps her teeth together. In the morning , she feels feels stiff and arthritic type pain in her left TMJ area. If she bites in an apple or nut, she feels sharp pain in the left TMJ area. She cannot bite down hard with her teeth. It feels like her jaw might break and she has the sharp pain and so she avoids it. Pt feels her body tightening up at night, including her arms. She liked craniosacral therapy in the past. She felt relief with it. She also felt relief with massage therapy. It is like a valve opening up and more mobility in her left TMJ. Pt sleeps on her back with one pillow under her head. She occ wakes up on her stomach with her head turned to the left. She has a memory foam mattress. She likes it. She gets cold at night. She got a weighted blanket. She gets up 1-2x/night to urinate. She denies apnea and walking in her sleep. She has 2 dogs and a cat in the room. The cat occ gets on the bed. The cat occ inhibits movement. Treatment Goals Patient/Caregiver Goals To bite down hard without pain , waking up with less jaw pain and tension, learning techniques that will help her in the future. PT-OP-C Subjective Start: 11/07/20 07:26 Freq: Status: Active Protocol: Document 01/29/21 09:48 MB (Rec: 01/29/21 10:30 MB [id number]) OP-PT Subjective Patient Comments Patient Comments Pt states that she and were able to practice the masseter massage once. It was a little sore after treatment. PT-OP-J Posture/Palpation/Skin Start: 11/07/20 07:26 Freq: Status: Active Protocol: Document 11/07/20 09:47 MB (Rec: 11/07/20 16:05 MB [id number]) Posture Evaluation Comments Posture Comments Standing posture: Pt states with head in mild SB posture that she corrects and it changes. She states this is a long-standing posture of hers. She presents with forward head, rounded shoulders, decreased cervical lordosis, Dowager's hump, decreased thoracic kyphosis, anterior tilt pelvis, mid clavicular protrusion B, right scapula lower than the left, right iliac crest higher than the left. Skin Assessment Other Assessments Skin Assessment Comments Increased tension right greater than left SCM, left temporalis PT-OP-K Range of Motion Start: 11/07/20 07:26 Freq: Status: Active Protocol: Document 11/07/20 09:47 MB (Rec: 11/07/20 16:05 MB [id number]) Cervical Spine Range of Motion Cervical Spine Active Testing Position Standing Flexion 35 Extension 40 Rotation Left 50 Rotation Right 50 Lateral Flexion Left 35 Lateral Flexion Right 25 TMJ Range of Motion Comments Comments Mild deviation to the left with mandiublar depression. 32 mm depression today PT-OP-Q Treatments Start: 11/07/20 07:26 Freq: Status: Active Protocol: Document 01/29/21 09:48 MB (Rec: 01/29/21 10:30 MB [id number]) Therapeutic Exercises Supine Exercises Buteyko breathing Supine Exercise Name Progressed today including more ed on technique. Re-ed ex 1 Comments Re-ed blocked nostril and sinus decon. Ed ex 2 all variations, walking Self-Care/Home Management Treatment Education Other Education Ed pt in progression of Buteyko with reasoning behind exercise 1 and exercise 2 ( breathing light to control air hunger), guidelines going forward, especially when she becomes (no CP first trimester and only work on keeping mouth closed for nasal breathing), ed in when and how to tape mouth PT-OP-T Assessment and Plan Start: 11/07/20 07:26 Freq: Status: Active Protocol: Document 01/29/21 09:48 MB (Rec: 01/29/21 10:30 MB [id number]) Physical Therapy Assessment Rehab Potential Rehabilitation Potential Good Evaluation Complexity Number of Personal Factors/Comorbidities 1-2 Number of Body Systems Impaired 1-2 Clinical Presentation at Evaluation Evolving Impairments Impairments Pain,Posture,ROM,Soft Tissue Mobility Goals 3 Field Recorder Goal (LTG) Pt will perform progressive HEP with I including postural, relaxation, flexibility, and self-myofascial exercises to improve pain, posture and function by 01/30/21. 01/16/21: Pt is racquet ball massage, use of back geographic information system analyst, pool noodle progression, Buteyko breathing exercises, SCM MWM, core progression, pelvic realignment exercises LTG Duration Met 2 Senior Living Goal (LTG) Pt will report an overall 75% improvement in left TMJ symptoms with sleeping and waking to improve quality of sleep and life by 01/30/21. 12/05/20: Pt reports an 85-90% improvement TMJ symptoms with sleeping and waking with breathing exercises being the most helpful LTG Duration Met 1 Field Recorder Goal (LTG) Pt will report a 75% improvement in pain and strength ability of biting into a hard food such as an apple by 01/30/21. 01/29/21: Pt reports 20% improvement towards this pain goal. LTG Duration Minimal improvement Assessment Summary Assessment Pt has maximized PT potential and has met 3 out of 4 PT goals. Pt reports that she con 't to have a twinge of pain when biting into hard food. She tried biting into a Twix. She is performing progressive HEP including Buteyko breathing and is excited to start new exercises after training today. She is ready to d/c and will con't self- care techniques including self -massage and exercises at home .
== END 2021-01-29 13:14 | disposition home or self-care (01) ==
LOC: PHYS 09:45
PROVIDERS: PCP Registered Nurse Diabetes Educator; Referring Provider Registered Nurse Diabetes Educator; Visit Provider Registered Nurse Diabetes Educator
DX: M26.609 Unspecified temporomandibular joint disorder, unspecified side (principal)
CPT/HCPCS: 97110; 97140; 97161; 97535

== ENCOUNTER → 2021-11-16 11:52 | Outpatient (CLI) | payer SELFPAY ==
--- NOTE | 2021-11-16 11:54 | DI.RAD.S_ITS ---
PROCEDURE: XR FOOT RT MIN 3V INDICATIONS: right foot puncture wound TECHNIQUE: 3 views of the foot were acquired. COMPARISON: None. FINDINGS: Bones: No fractures or dislocations. No suspicious bony lesions. Soft tissues: No tibiotalar joint effusion. Achilles tendon appears normal. No radiopaque foreign bodies are seen. IMPRESSION: Unremarkable plain film study, without a radiopaque foreign body seen at the site of injury. Dictated by: Sy Pierre M.D. on 11/16/2021 at 11:16 Approved by: Sy Pierre M.D. on 11/16/2021 at 11:16
== END ==
PROVIDERS: PCP Registered Nurse Diabetes Educator; Referring Provider Nurse Practitioner Family; Visit Provider Nurse Practitioner Family
DX: S91.331A Puncture wound without foreign body, right foot, initial encounter (principal); X58.XXXA Exposure to other specified factors, initial encounter
CPT/HCPCS: 73630